=== PATIENT | female | born 1965 | race Caucasian/White ===

== ENCOUNTER → 2017-01-22 | Outpatient (CLI) | payer BC ==
--- NOTE | 2017-01-22 13:50 | DIAGNOSTIC IMAGING REPORT ---
RIGHT HIP UNILATERAL 2 VIEWS CLINICAL HISTORY: 51 years-old Female presenting with falling, bilateral hip pain and lower back pain. TECHNIQUE: Frontal and frog-leg lateral views of the right hip were obtained. COMPARISON: None. FINDINGS: Hip joint congruent. No acute fracture or subluxation. Minimal degenerative change of the right sacroiliac joint suggested. IMPRESSION: No acute osseous injury of the right hip. Electronically signed by: Brendan Sylvester M.D. 01/22/2017 1:49 PM Dictated Date/Time: 01/22/2017 1:48 PM
--- NOTE | 2017-01-22 13:52 | DIAGNOSTIC IMAGING REPORT ---
SACRUM COCCYX MIN 2 VIEWS CLINICAL HISTORY: 51 years-old Female presenting with fall, bilateral hip and lower back pain. TECHNIQUE: Frontal views of the sacrum and coccyx and lateral view of the sacrococcygeal region were obtained. COMPARISON: None. FINDINGS: Arcuate lines intact. Degenerative changes of the sacroiliac joints. No displacement of the coccyx relative to the sacrum. Phleboliths noted. Remainder of visualized pelvis within normal limits. IMPRESSION: No acute osseous injury of the sacrum or coccyx. Electronically signed by: Brendan Sylvester M.D. 01/22/2017 1:51 PM Dictated Date/Time: 01/22/2017 1:49 PM
--- NOTE | 2017-01-22 13:53 | DIAGNOSTIC IMAGING REPORT ---
LEFT HIP UNILATERAL 2 VIEWS, SI JOINTS 3 OR MORE VIEWS HISTORY: 51 years-old Female M25.551 COMPARISON: Sacrum and coccyx radiographs of same day TECHNIQUE: 2 views of the left hip and 3 views of the SI joints. FINDINGS: LEFT HIP: Mild degenerative changes are present within the left hip. No acute fracture or dislocation is identified. Soft tissues are unremarkable. SI JOINTS: Mild degenerative changes involve the bilateral sacroiliac joints without erosive changes. No evidence of sacral fracture. Arcuate lines are intact. Mild facet arthrosis involves the lower lumbar levels. Phleboliths are seen within the pelvis. IMPRESSION: 1. No acute fracture of the left hip or SI joints. 2. Mild degenerative changes of the left hip and SI joints without erosive changes identified. The above report was generated using voice recognition software. It may contain grammatical, syntax or spelling errors. Electronically signed by: Hema Del Cid M.D. 01/22/2017 1:51 PM Dictated Date/Time: 01/22/2017 1:49 PM
--- NOTE | 2017-01-22 13:55 | DIAGNOSTIC IMAGING REPORT ---
L-SPINE MIN 4 VIEWS ROUTINE CLINICAL HISTORY: Lower back pain. COMPARISON: None FINDINGS: A 6 mm left abdominal calcification likely reflects a left renal calculus. There is a 1.1 cm right upper quadrant calcific density. Pelvic calcifications statistically reflect phleboliths. There is 3 mm anterolisthesis of L4 on L5. Vertebral body heights are maintained. There is no fracture or suspicious lesion. There is moderate multilevel facet arthrosis and mild multilevel endplate osteophytosis with preserved disc spaces. IMPRESSION: 1. No lumbar spine fracture. 2. 3 mm of anterolisthesis of L4 and L5. 3. Mild multilevel degenerative disc disease and moderate multilevel facet arthrosis. 4. 6 mm left abdominal calcification which likely reflects a left renal calculus. 5. 1.1 cm right upper quadrant calcification. This is indeterminate but may reflect a gallstone or less likely renal calculus. 6. A few pelvic calcifications which statistically reflect phleboliths. Electronically signed by: José Luis Pederson M.D. 01/22/2017 1:53 PM Dictated Date/Time: 01/22/2017 1:50 PM
== END | disposition home or self-care (01) ==
LOC: C.RADBC 13:01
PROVIDERS: ATTEND Nurse Practitioner
DX: Z87.39 Personal history of other diseases of the musculoskeletal system and connective tissue (principal); M54.5 Low back pain; M43.16 Spondylolisthesis, lumbar region; R93.5 Abnormal findings on diagnostic imaging of other abdominal regions, including retroperitoneum

== ENCOUNTER → 2017-04-22 | Outpatient (CLI) | payer BC ==
--- NOTE | 2017-04-22 10:25 | DIAGNOSTIC IMAGING REPORT ---
R FOOT MIN 3 VIEWS CLINICAL HISTORY: RIGHT FOOT PAIN COMPARISON: None. DISCUSSION: No acute fractures or dislocations are visualized. There are no erosive or destructive changes. There is deformity involving the distal phalanx of the fifth toe. This appears old. IMPRESSION: 1. No acute fractures 2. No evidence of erosive disease 3. Deformity involving the distal phalanx the fifth toe. This appears old. Electronically signed by: Aram Rendon M.D. 04/22/2017 10:24 AM Dictated Date/Time: 04/22/2017 10:23 AM
== END | disposition home or self-care (01) ==
LOC: C.RDSM 11:38
PROVIDERS: ATTEND Internal Medicine
DX: M79.671 Pain in right foot (principal); M20.61 Acquired deformities of toe(s), unspecified, right foot

== ENCOUNTER 2017-05-04 08:48 | Emergency (ER) | payer BC ==
[~2017-05-04] VITALS: Ht 165.1 cm; Wt 92.4 kg
[2017-05-04 08:52] VITALS: TEMP 36.4; Ht 165.1 cm; Wt 92.4 kg
[2017-05-04] MEDS ORDERED: KETOROLAC TROMETHAMINE 10 MG TAB PO STA (09:16)
[2017-05-04] MEDS ORDERED: FLUO10CA48 PO (09:23)
[2017-05-04] MEDS ORDERED: AMPH10TA2 PO (09:23)
--- NOTE | 2017-05-04 09:45 | DIAGNOSTIC IMAGING REPORT ---
RIGHT WRIST 4 VIEWS CLINICAL HISTORY: Right wrist pain. No reported history of trauma. FINDINGS: 4 views of the right wrist are obtained. No prior studies are available for comparison at the time of dictation. The skeletal structures are well mineralized. No fracture is seen. The joint spaces of the wrist are well-maintained. The overlying soft tissues are within normal limits. A ring is present on the third finger. IMPRESSION: Unremarkable radiographic assessment of the right wrist. Electronically signed by: Barry Gagnon M.D. 05/04/2017 9:43 AM Dictated Date/Time: 05/04/2017 9:42 AM
[2017-05-04] MEDS ORDERED: KETO10TA PO (10:17)
[2017-05-04 10:55] VITALS: BP 125/84; PULSE 94; O2SAT 97
--- NOTE | 2017-05-04 15:41 | EMERGENCY ROOM VISIT NOTE ---
ED Visit Note First contact with patient: 09:02 Chief Complaint: Right wrist pain. History of Present Illness: Ms. Garza is a 51-year-old white female who ambulates into the ED complaining of right wrist pain. Historically patient reports she room at [facility] and has self self diagnosed with carpal tunnel syndrome; multiple family members have carpal tunnel and she has been having ongoing system for the last 5-10 years of numbness and tingling in the hand. Patient repeat she had return of numbness and tingling in her hand approximately one week ago. She does report through this week she has been doing construction at her house on a bathroom. During this project she did puncture her index finger with a wooden splinter. She does report she was able to remove the splinter and did have some purulent drainage and questions if it was infected. She then goes on to report that she drove most the night to and back from [facility]. Currently she is complaining of severe wrist pain with hand burning sensations. Her discomfort is through the entire wrist and throughout the hand. She rates her discomfort 10/10. She has not identified any aggravating or alleviating factors related to the pain. She does report taking ibuprofen without relief of her discomfort. She denies any neck pain, elbow pain, forearm pain, hand weakness/numbness, additional trauma to the hand or wrist, skin eruptions, skin color changes, fevers, chills. Review of Systems: As noted above in history of present illness. 5 body systems were reviewed and found to be negative as noted above. Past Medical History: As previously noted and attention deficit disorder. Current Medications: Adderall, Prozac. Allergies to Medications: Penicillin. Social History: Patient is currently employed; she feels safe in her home environment; she denies tobacco use. Physical Examination: Vital Signs: Date Time Temp Pulse Resp B/P (MAP) Pulse Ox O2 Delivery O2 Flow Rate FiO2 05/04/17 10:55 94 20 125/84 97 Room Air 05/04/17 08:52 36.4 74 18 152/103 95 Room Air GENERAL: 51-year-old female in moderate distress due to pain, nontoxic-appearing , afebrile and hemodynamically stable. NEUROLOGICAL: Awake, alert and oriented to person, place and time. Answering questions appropriately and following commands. SKIN: Warm, dry and pink. RIGHT UPPER EXTREMITY: The form a noted at the second distal interphalangeal joint. Joint is in permanent flexion. No tenderness in the elbow or forearm. Moderate tenderness throughout the wrist and hand. I do not appreciate any bony deformity or crepitus. No tenderness in the anatomical snuffbox. Decreased range of motion in flexion, extension and radial molar deviation of the wrist due to pain. Decreased range of motion in the hand due to pain. There is a small puncture wound over the posterior lateral aspect of the index finger. There is no active bleeding; patient reports this was where she had a puncture wound. I do not see any signs of infection including redness, puslike drainage or red streaking. Rule out the hand the skin was warm and pink and capillary refill is brisk. She is able to distinguish light sensations through all dermatomes. More significant testing of the fingers and the wrist was unsuccessful due to her pain. She was able to oppose her thumb with all fingers. ED Course: Patient is assessed as noted above. Patient's medication list was reviewed. Patient was initially offered x-rays and refused because she reported there was no trauma. When I expressed concern about possible involvement of her rheumatoid arthritis she agreed. Right Wrist X-Rays: Were read by myself and the radiologist showing no acute fractures or dislocations. Patient was offered pain medications but refused narcotics and steroids because of previous adverse reactions. Patient did except 10 mg of Toradol by mouth for pain. Patient was offered splints and refused saying she had some at home. Patient was educated about today's findings and instructed on her treatment plan ; she verbalized understanding and agreement with this plan. Clinical Impression: Left wrist pain. Disposition: Patient was discharged home in stable condition; prior to departure she was reassessed and subjectively reported she was feeling better and rated her overall discomfort 8/10. Patient's blood pressure: Elevated. Blood pressure disposition: Situational. Decision-Making: Initially my differential diagnosis I considered carpal tunnel exacerbation, pathological fracture from rheumatoid arthritis, tendinitis, cellulitis, gout, cellulitis, fracture, dislocation and other causes. Plan: Patient was encouraged to continue her current medications and use of splints. Patient was prescribed Toradol 10 mg every 6 hours as needed for pain; she was encouraged to take this with food and stop for stomach pain or indigestion. Patient was encouraged to follow-up with Dr. Euceda of [facility] orthopedics for definitive care and treatment. Patient was encouraged return ED for worsening symptoms, worsening numbness/ tingling or any new/concerning symptoms.
[2017-05-04] MEDS ORDERED: FLUO20CA35 PO (16:26)
[2017-05-04] MEDS ORDERED: OXYC1TAB3 PO (17:01)
== END 2017-05-04 11:02 | disposition home or self-care (01) ==
LOC: C.EDB 08:49
DX: M25.531 Pain in right wrist (principal); R41.840 Attention and concentration deficit; M06.9 Rheumatoid arthritis, unspecified

== ENCOUNTER 2017-05-04 14:57 | Emergency (ER) | payer BC ==
[~2017-05-04] VITALS: Ht 165.1 cm; Wt 103.5 kg
[~2017-05-04 14:57] MED LIST: AMPH10TA2 PO; FLUO10CA48 PO; KETO10TA PO
[2017-05-04 15:16] VITALS: TEMP 36.8; Ht 165.1 cm; Wt 103.5 kg
[2017-05-04] MEDS ORDERED: MoRPHine SULFATE 4 MG/ML 1 ML CARP\\VIAL IV STA (15:36)
[2017-05-04 16:11] LABS: BASO % 0.7 %; BASO ABS # 0.05 K/uL (0-0.2); COMPLETE YES; EOS % 4.8 %; HEMATOCRIT 43.5 % (37-47); IG% 0.3 %; LYMPH % 28.7 %; LYMPH ABS # 1.96 K/uL (1.2-3.4); MEAN CELL VOLUME 87.7 fL (80-100); MEAN CORPUSCULAR HEMOGLOBIN 29.2 pg (25-34); MEAN CORPUSCULAR HGB CONC 33.3 g/dl (32-36); MEAN PLATELET VOLUME 9.7 fL (7.4-10.4); MONO % 8.9 %; NEUT % 56.6 %; PLATELET COUNT 256 K/uL (130-400); RED BLOOD COUNT 4.96 M/uL (4.2-5.4); WHITE BLOOD COUNT 6.82 K/uL (4.8-10.8)
[2017-05-04] MEDS ORDERED: FLUO20CA35 PO (16:26)
[2017-05-04 16:38] LABS: ALB/GLOB RATIO 0.9 (0.9-2); ALKALINE PHOSPHATASE 88 U/L (45-117); ALT/SGPT 56 U/L (12-78); BLOOD UREA NITROGEN 9 mg/dl (7-18); BUN/CREATININE RATIO 10.5 (10-20); C-REACTIVE PROTEIN 0.51 mg/dl (0-0.29); CALCIUM 9.3 mg/dl (8.5-10.1); CARBON DIOXIDE 25 mmol/L (21-32); CHLORIDE 103 mmol/L (98-107); CREATININE 0.88 mg/dl (0.60-1.20); GLUCOSE 93 mg/dl (70-99); SODIUM 138 mmol/L (136-145)
[2017-05-04] MEDS ORDERED: OXYCODONE IR HOME PACK PO STA (16:57)
[2017-05-04] MEDS ORDERED: OXYC1TAB3 PO (17:01)
--- NOTE | 2017-05-04 17:02 | EMERGENCY ROOM VISIT NOTE ---
History First contact with patient: 15:25 Chief Complaint: HAND PAIN/INJURY Stated Complaint: PAIN IN HAND History of Present Illness The patient is a 51 year old female who presents to the Emergency Room via private vehicle accompanied by with complaints of "pain and hand". The patient states that she has had numbness for a long time in her right distal fingertips however for the past week she has been doing a lot of work around the house and notes that her hand now periodically goes numb and has a sharp pain. It is now excruciating, and is rated as a 10/10. She notes she was seen earlier today and had a prescription sent to her pharmacy back home but they were closed therefore she came back here to the emergency department. She states that she at times cannot bend her fingers. She denies any trauma to the region. She also notes a small splinter in the finger but no problems. Review of Systems A complete 10-point Review of Systems was discussed with the patient, with pertinent positives and negatives listed in the History of Present Illness. All remaining Review of Systems questions can be considered negative unless otherwise specified. Past Medical/Surgical History Arthritis Family History No pertinent. Social History Smoking Status: Former Smoker Pt. lives locally Current/Historical Medications Scheduled Amphetamine-Dextroamphetamine 10MG (Adderall 10MG), 10 MG PO DAILY Fluoxetine (Prozac), Unknown Dose PO HS Scheduled PRN Ketorolac Tromethamine (Toradol), 10 MG PO Q6H PRN for Pain Oxycodone Ir (Roxicodone Ir), 1-2 TAB PO Q4H PRN for Pain Physical Exam Vital Signs Date Time Temp Pulse Resp B/P (MAP) Pulse Ox O2 Delivery O2 Flow Rate FiO2 05/04/17 16:24 85 05/04/17 15:16 36.8 85 18 157/88 96 Room Air Physical Exam VITAL SIGNS - Vital signs and nursing notes were reviewed. Stable. GENERAL - 51-year-old female appearing her stated age who is in no acute distress. Communicates well with provider and answers questions appropriately. SKIN - Without rashes. No breaks in the integument, hand unremarkable. HEAD - NC/AT. EYES - PERRL with EOMI bilaterally. Sclera anicteric. EARS - No deformities of external structures noted on gross examination bilaterally. NOSE - Midline and without cyanosis. MOUTH/OROPHARYNX - Without perioral cyanosis. NECK - Neck with FROM. Supple to palpation. No lymphadenopathy noted. No nuchal rigidity. EXTREMITIES - No clubbing or peripheral cyanosis. No pretibial edema present. 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 Great R wrist pulses. +5/5 strength noted in UE/LE bilaterally. NEUROLOGIC - Cranial nerves II through XII grossly intact. Sensory intact to light touch throughout. Medical Decision & Procedures Laboratory Results 05/04/17 15:54 Red Blood Count 4.96, Mean Corpuscular Volume 87.7, Mean Corpuscular Hemoglobin 29.2, Mean Corpuscular Hemoglobin Concent 33.3, Mean Platelet Volume 9.7, Neutrophils (%) (Auto) 56.6, Lymphocytes (%) (Auto) 28.7, Monocytes (%) (Auto) 8.9, Eosinophils (%) (Auto) 4.8, Basophils (%) (Auto) 0.7, Neutrophils # (Auto) 3.85, Lymphocytes # (Auto) 1.96, Monocytes # (Auto) 0.61, Eosinophils # (Auto) 0.33, Basophils # (Auto) 0.05 05/04/17 15:54 Test 05/04/17 15:54 White Blood Count 6.82 K/uL (4.8-10.8) Red Blood Count 4.96 M/uL (4.2-5.4) Hemoglobin 14.5 g/dL (12.0-16.0) Hematocrit 43.5 % (37-47) Mean Corpuscular Volume 87.7 fL (80-100) Mean Corpuscular Hemoglobin 29.2 pg (25-34) Mean Corpuscular Hemoglobin Concent 33.3 g/dl (32-36) Platelet Count 256 K/uL (130-400) Mean Platelet Volume 9.7 fL (7.4-10.4) Neutrophils (%) (Auto) 56.6 % Lymphocytes (%) (Auto) 28.7 % Monocytes (%) (Auto) 8.9 % Eosinophils (%) (Auto) 4.8 % Basophils (%) (Auto) 0.7 % Neutrophils # (Auto) 3.85 K/uL (1.4-6.5) Lymphocytes # (Auto) 1.96 K/uL (1.2-3.4) Monocytes # (Auto) 0.61 K/uL (0.11-0.59) Eosinophils # (Auto) 0.33 K/uL (0-0.5) Basophils # (Auto) 0.05 K/uL (0-0.2) RDW Standard Deviation 45.7 fL (36.4-46.3) RDW Coefficient of Variation 14.3 % (11.5-14.5) Immature Granulocyte % (Auto) 0.3 % Immature Granulocyte # (Auto) 0.02 K/uL (0.00-0.02) Erythrocyte Sedimentation Rate 15 mm/hr (0-21) Anion Gap 9.0 mmol/L (3-11) Est Creatinine Clear Calc Drug Dose 89.3 ml/min Estimated GFR () 87.6 Estimated GFR (Non- 75.5 BUN/Creatinine Ratio 10.5 (10-20) Calcium Level 9.3 mg/dl (8.5-10.1) Total Bilirubin 0.6 mg/dl (0.2-1) Aspartate Amino Transf (AST/SGOT) U/L (15-37) Alanine Aminotransferase (ALT/SGPT) 56 U/L (12-78) Alkaline Phosphatase 88 U/L (45-117) C-Reactive Protein 0.51 mg/dl (0-0.29) Total Protein 7.7 gm/dl (6.4-8.2) Albumin 3.7 gm/dl (3.4-5.0) Globulin 4.0 gm/dl (2.5-4.0) Albumin/Globulin Ratio 0.9 (0.9-2) Medications Administered Medications (Trade) Dose Ordered Sig/Silva Route Start Time Stop Time Status Last Admin Dose Admin Morphine Sulfate (MoRPHine SULFATE INJ) 4 mg NOW STAT IV 05/04/17 15:36 05/04/17 15:38 DC 05/04/17 16:11 4 MG Medical Decision Patient was seen and evaluated as above. She presents to us today with right hand pain. She was seen earlier today and her visit was reviewed. I suspect she is likely either experiencing cervical radiculopathy, or perhaps a component of her underlying arthritis or carpal tunnel. Because of her large amount of pain and did elect to initiate IV access, provided morphine for pain, as well as check baseline labs. These are unremarkable other than a slight elevation of the CRP. I believe this to be insignificant. She appears stable for outpatient management. There is no evidence of infection, which were neurologic compromise upon my evaluation of her. She seems happy with plan of care and is to see orthopedics tomorrow. She'll be given a short prescription of oxycodone. She was educated upon management, educated upon worrisome symptoms which to return, had questions and provided discharge, and was discharged home in good condition. In the treatment of this patient controlled medication was utilized and therefore the [facility], Prescription Drug Monitoring Program website was utilized to look up this patient. No concerns were identified that would prohibit or alter my treatment decision. In the evaluation and treatment of this patient, the following differential diagnoses were considered: Wrist Sprain, Wrist Fracture, Wrist Dislocation, Scapholunate Dissociation, Carpal Fracture, Metacarpal Fracture, Radial Styloid Process Fracture, Ulnar Styloid Process Fracture, or Carpal Tunnel Syndrome. Impression Primary Impression: Hand pain, right Departure Information Dispostion Home / Self-Care Condition GOOD Prescriptions Oxycodone Ir (Roxicodone Ir) 5 Mg Tab 1-2 TAB PO Q4H Y for Pain, #24 TAB For Initial Treatment Prov: Ernesto Costa PA-C 05/04/17 Referrals Tabitha Parker,D.OCarmina (PCP) Juice Euceda, DO Patient Instructions [facility] Additional Instructions You were seen in the emergency Department for right hand pain. I do recommend following up with orthopedics. Please arrange this appointment tomorrow. You were prescribed oxycodone. This is one to 2 tablets every 4-6 hours as needed for severe pain not covered by that [id number] medication. Please do not drive while ingesting this medication. Please return with any new/concerning symptoms.
[2017-05-04 17:32] VITALS: BP 138/75; PULSE 72; O2SAT 100
== END 2017-05-04 17:34 | disposition home or self-care (01) ==
LOC: C.EDB 14:57 → C.EDA 17:34
DX: M79.641 Pain in right hand (principal); Z87.891 Personal history of nicotine dependence; Z79.899 Other long term (current) drug therapy

== ENCOUNTER → 2017-05-12 | Outpatient (CLI) | payer BC ==
[~2017-05-12] MED LIST changes: -FLUO10CA48 PO; +FLUO20CA35 PO; +OXYC1TAB3 PO
--- NOTE | 2017-05-12 16:05 | DIAGNOSTIC IMAGING REPORT ---
BILATERAL UPPER EXTREMITY ARTERIAL DOPPLER ULTRASOUND CLINICAL HISTORY: Right hand pain and numbness. COMPARISON STUDY: No previous studies for comparison. TECHNIQUE: Grayscale and color and duplex Doppler sonography of the arterial systems of both upper arteries was performed. FINDINGS: No vessel occlusion was identified within either upper extremity. No elevated velocities were identified. There was triphasic flow throughout the major arteries of each upper extremity with the exception of biphasic flow within the right radial artery and portions of the right ulnar artery. IMPRESSION: 1. Slightly dampened waveform with biphasic flow within the right radial artery and portions of the right ulnar artery. Otherwise, triphasic flow throughout each upper extremity. 2. No elevated velocities. No vessel occlusion identified by sonography. Electronically signed by: José Luis Pederson M.D. 05/12/2017 4:03 PM Dictated Date/Time: 05/12/2017 4:00 PM
== END | disposition home or self-care (01) ==
LOC: C.ULTR 15:01
PROVIDERS: ATTEND Internal Medicine Rheumatology
DX: M79.641 Pain in right hand (principal); I73.00 Raynaud's syndrome without gangrene

== ENCOUNTER 2017-08-01 17:28 | Emergency (ER) | payer BC, OTHER ==
[~2017-08-01] VITALS: Ht 165.1 cm; Wt 102.9 kg
[~2017-08-01 17:28] MED LIST changes: -KETO10TA PO
[2017-08-01 17:32] VITALS: TEMP 37.2; Ht 165.1 cm; Wt 102.9 kg
[2017-08-01] MEDS ORDERED: ONDANSETRON INJ 2 MG/ML 2 ML VIAL IV STA (17:45)
[2017-08-01] MEDS ORDERED: KETOROLAC TROMETHAMINE 30 MG/ML VIAL IV STA (17:45)
[2017-08-01] MEDS ORDERED: SODIUM CHLORIDE 0.9% 500ML 500 ML IV STA (17:45)
[2017-08-01] MEDS ORDERED: MULT-240 PO (18:00)
[2017-08-01] MEDS ORDERED: CETI10TA84 PO (18:00)
[2017-08-01 18:12] LABS: BASO % 0.5 %; BASO ABS # 0.02 K/uL (0-0.2); EOS % 2.1 %; EOS ABS # 0.09 K/uL (0-0.5); HEMATOCRIT 40.5 % (37-47); HEMOGLOBIN 13.9 g/dL (12.0-16.0); IG# 0.05 K/uL (0.00-0.02); LYMPH % 13.1 %; LYMPH ABS # 0.56 K/uL (1.2-3.4); MEAN CELL VOLUME 86.2 fL (80-100); MEAN CORPUSCULAR HEMOGLOBIN 29.6 pg (25-34); MEAN CORPUSCULAR HGB CONC 34.3 g/dl (32-36); MONO % 6.3 %; MONO ABS # 0.27 K/uL (0.11-0.59); NEUT % 76.8 %; NEUT ABS # 3.29 K/uL (1.4-6.5); PLATELET COUNT 202 K/uL (130-400); RED CELL DISTRIBUTION WIDTH CV 13.7 % (11.5-14.5); RED CELL DISTRIBUTION WIDTH SD 43.2 fL (36.4-46.3); WHITE BLOOD COUNT 4.28 K/uL (4.8-10.8)
--- NOTE | 2017-08-01 18:18 | DIAGNOSTIC IMAGING REPORT ---
LUMBAR SPINE WITHOUT CLINICAL HISTORY: 51 years-old Female presenting with eval for fx, concern for fracture versus kidney stone. TECHNIQUE: Multidetector CT of the lumbar spine was performed without the use of intravenous contrast. IV contrast: None. A dose lowering technique was used consistent with the principles of ALARA (as low as reasonably achievable). COMPARISON: Radiographs from 01/22/2017. CT DOSE (mGy.cm): The estimated cumulative dose is 1698.94. FINDINGS: Systems Engineer topogram: Unremarkable. Normal lumbar lordosis. Vertebral bodies maintain normal height and alignment. Intervertebral disc spaces maintained. Mild degenerative changes evidenced by facet arthropathy from L3-4 through L5-S1. No significant osseous neural foraminal narrowing. No acute fracture or subluxation. No scoliosis. Nonobstructing calculi noted in the left kidney. IMPRESSION: 1. No acute osseous injury lumbar spine. 2. Nonobstructing left renal calculi. Electronically signed by: Brendan Sylvester M.D. 08/01/2017 6:16 PM Dictated Date/Time: 08/01/2017 6:14 PM
[2017-08-01 18:24] LABS: ALBUMIN 3.5 gm/dl (3.4-5.0); ALT/SGPT 37 U/L (12-78); BLOOD UREA NITROGEN 12 mg/dl (7-18); CALCIUM 9.2 mg/dl (8.5-10.1); CARBON DIOXIDE 27 mmol/L (21-32); CREATININE 1.02 mg/dl (0.60-1.20); GLUCOSE 94 mg/dl (70-99); LIPASE 156 U/L (73-393); POTASSIUM 3.5 mmol/L (3.5-5.1); SODIUM 138 mmol/L (136-145)
--- NOTE | 2017-08-01 18:24 | DIAGNOSTIC IMAGING REPORT ---
ABD/PELVIS WITHOUT FOR STONE HISTORY: 51 years-old Female eval for stone acute bilateral flank pain with concern for kidney stone COMPARISON: Lumbar spine CT of same day TECHNIQUE: Multiple axial CT images of the abdomen and pelvis were obtained without the use of IV contrast. A dose lowering technique was used consistent with the principals of BRADLEY. FINDINGS: 3 mm solid nodule of the left lower lobe is noted on image 14 of series 3. There is mild subsegmental bibasilar atelectasis. There is no pneumatosis or pneumoperitoneum identified. Imaged inferior cardiac chambers are unremarkable. Hepatic steatosis. There is no intrahepatic biliary ductal dilation identified. Circumscribed low attenuating 7 mm lesion of the left hepatic lobe is too small to characterize however suggests benign etiology such as a hepatic cyst. Cholelithiasis without CT evidence of acute cholecystitis. Spleen, pancreas and adrenal glands are within normal limits. 9 mm nonobstructing calculus of the inferior pole right kidney. Punctate nonobstructing calculus of the superior pole left kidney. No right-sided nephrolithiasis, obstructive uropathy or ureteral calculi identified. Urinary bladder is not imaged. The study is limited secondary to the inferior portion of the pelvis not imaged. Uterus is unremarkable. No adnexal mass lesions. Aorta is normal in course and caliber. No bulky adenopathy. No bowel obstruction or focal bowel wall thickening. Normal appendix. Tiny fat filled periumbilical hernia. Soft tissues are unremarkable. Bones appear intact. Multilevel moderate facet arthropathy of the lower lumbar spine. IMPRESSION: 1. Limited study with the inferior pelvis including the urinary bladder not imaged. 2. Bilateral nonobstructing nephrolithiasis without ureteral calculi or obstructive uropathy identified. 3. Cholelithiasis without CT evidence of acute cholecystitis. 4. Hepatic steatosis. 5. Normal appendix. The above report was generated using voice recognition software. It may contain grammatical, syntax or spelling errors. Electronically signed by: Hema Del Cid M.D. 08/01/2017 6:23 PM Dictated Date/Time: 08/01/2017 6:13 PM
[2017-08-01 18:27] LABS: ALKALINE PHOSPHATASE 93 U/L (45-117); AST/SGOT 43 U/L (15-37); TOTAL PROTEIN 7.5 gm/dl (6.4-8.2)
[2017-08-01] MEDS ORDERED: CIPROFLOXACIN 500 MG TAB PO STA (18:44)
[2017-08-01] MEDS ORDERED: CIPR-255 PO (18:47)
[2017-08-01 18:58] VITALS: BP 112/68; PULSE 104; O2SAT 96
[2017-08-01] MEDS ORDERED: ONDANSETRON HOME PACK 4MG OD TAB PO ONE (19:00)
--- NOTE | 2017-08-01 23:23 | EMERGENCY ROOM VISIT NOTE ---
History Report prepared by Gustavo: Cristian Mercado Under the Supervision of: Dr. Aly Walton M.D. First contact with patient: 17:35 Chief Complaint: KIDNEY STONE Stated Complaint: BACK PAIN, KIDNEY STONE AND INFECTION History of Present Illness The patient is a 51 year old female who presents to the Emergency Room with complaints of persistent back pain for three weeks. She states that she has been having this pain for three weeks and was seen by her PCP today, who recommended she come to the ED for a CT scan. She notes the pain is achy in nature. She notes pain to the front of her thighs, though cannot tell if the pain from her back is radiating to her legs. She reports a history of bulging disk in her lower back. She was diagnosed with a UTI May 2017. She did not have urinary symptoms at that time and so did not get treated. Currently she has urgency to urinate and reports frequent urination. She reports nausea, though denies any vomiting. She reports a low grade fever. She reports constipation and denies any diarrhea. She denies any chance of . She denies any current leg swelling or pain. She has a history of rheumatoid arthritis. Source of History: patient Onset: three weeks Position: back Symptom Intensity: moderate Quality: ache Timing: other (persistent) Associated Symptoms: + fevers, + nausea, No vomiting, No diarrhea, No urinary symptoms Note: She reports constipation. She denies any leg pain or swelling. Review of Systems See HPI for pertinent positives & negatives. A total of 10 systems reviewed and were otherwise negative. Past Medical & Surgical Medical Problems: (1) Rheumatoid arthritis Family History Cancer FHx: gallbladder disease Kidney disease Kidney stones Lung disease Social History Smoking Status: Former Smoker Smokeless Tobacco Use: No Alcohol Use: none Drug Use: none Marital Status: Housing Status: lives with significant other Occupation Status: employed Current/Historical Medications Scheduled Amphetamine-Dextroamphetamine 10MG (Adderall 10MG), 10 MG PO DAILY Cetirizine (Zyrtec), 10 MG PO DAILY Ciprofloxacin Hcl (Cipro), 500 MG PO BID Fluoxetine (Prozac), 20 MG PO HS Multiple Vitamins W/ Minerals (Womens One Daily), 1 TAB PO DAILY Allergies Coded Allergies: Penicillins (Verified Allergy, Unknown, 05/04/17) Physical Exam Vital Signs Date Time Temp Pulse Resp B/P (MAP) Pulse Ox O2 Delivery O2 Flow Rate FiO2 08/01/17 18:58 104 16 112/68 96 08/01/17 17:32 37.2 68 20 117/75 97 Room Air Physical Exam Constitutional: Vital signs reviewed. Eyes: Pupils are equal round reactive to light. Conjunctiva are noninjected. ENT: Pharynx is clear without erythema or exudate. Mucous membranes are moist. Neck supple without meningeal signs. Respiratory: Clear to auscultation bilaterally. Breath sounds are equal bilaterally. Cardiovascular: Regular rate and rhythm. No rubs or gallops. GI: Soft, nondistended and nontender. Bowel sounds are present. Musculoskeletal: No peripheral edema. No lower extremity tenderness. No midline tenderness to thoracic or lumbosacral spine. No CVA tenderness. Integumentary: No cyanosis. Neurological: The patient is awake and alert. No focal deficits. Motor and sensation are intact in the lower extremities. Psychiatric: Normal affect. Medical Decision & Procedures ER Provider Diagnostic Interpretation: Radiology results as stated below per my review and the radiologist's interpretation: ABD/PELVIS WITHOUT FOR STONE HISTORY: 51 years-old Female eval for stone acute bilateral flank pain with concern for kidney stone COMPARISON: Lumbar spine CT of same day TECHNIQUE: Multiple axial CT images of the abdomen and pelvis were obtained without the use of IV contrast. A dose lowering technique was used consistent with the principals of ALARA. FINDINGS: 3 mm solid nodule of the left lower lobe is noted on image 14 of series 3. There is mild subsegmental bibasilar atelectasis. There is no pneumatosis or pneumoperitoneum identified. Imaged inferior cardiac chambers are unremarkable. Hepatic steatosis. There is no intrahepatic biliary ductal dilation identified. Circumscribed low attenuating 7 mm lesion of the left hepatic lobe is too small to characterize however suggests benign etiology such as a hepatic cyst. Cholelithiasis without CT evidence of acute cholecystitis. Spleen, pancreas and adrenal glands are within normal limits. 9 mm nonobstructing calculus of the inferior pole right kidney. Punctate nonobstructing calculus of the superior pole left kidney. No right-sided nephrolithiasis, obstructive uropathy or ureteral calculi identified. Urinary bladder is not imaged. The study is limited secondary to the inferior portion of the pelvis not imaged. Uterus is unremarkable. No adnexal mass lesions. Aorta is normal in course and caliber. No bulky adenopathy. No bowel obstruction or focal bowel wall thickening. Normal appendix. Tiny fat filled periumbilical hernia. Soft tissues are unremarkable. Bones appear intact. Multilevel moderate facet arthropathy of the lower lumbar spine. IMPRESSION: 1. Limited study with the inferior pelvis including the urinary bladder not imaged. 2. Bilateral nonobstructing nephrolithiasis without ureteral calculi or obstructive uropathy identified. 3. Cholelithiasis without CT evidence of acute cholecystitis. 4. Hepatic steatosis. 5. Normal appendix. The above report was generated using voice recognition software. It may contain grammatical, syntax or spelling errors. Electronically signed by: Hema Del Cid M.D. 08/01/2017 6:23 PM Dictated Date/Time: 08/01/2017 6:13 PM LUMBAR SPINE WITHOUT CLINICAL HISTORY: 51 years-old Female presenting with eval for fx, concern for fracture versus kidney stone. TECHNIQUE: Multidetector CT of the lumbar spine was performed without the use of intravenous contrast. IV contrast: None. A dose lowering technique was used consistent with the principles of ALARA (as low as reasonably achievable). COMPARISON: Radiographs from 01/22/2017. CT DOSE (mGy.cm): The estimated cumulative dose is 1698.94. FINDINGS: Crab Picker topogram: Unremarkable. Normal lumbar lordosis. Vertebral bodies maintain normal height and alignment. Intervertebral disc spaces maintained. Mild degenerative changes evidenced by facet arthropathy from L3-4 through L5-S1. No significant osseous neural foraminal narrowing. No acute fracture or subluxation. No scoliosis. Nonobstructing calculi noted in the left kidney. IMPRESSION: 1. No acute osseous injury lumbar spine. 2. Nonobstructing left renal calculi. Electronically signed by: Brendan Sylvester M.D. 08/01/2017 6:16 PM Dictated Date/Time: 08/01/2017 6:14 PM Laboratory Results 08/01/17 17:56 Red Blood Count 4.70, Mean Corpuscular Volume 86.2, Mean Corpuscular Hemoglobin 29.6, Mean Corpuscular Hemoglobin Concent 34.3, Mean Platelet Volume 9.0, Neutrophils (%) (Auto) 76.8, Lymphocytes (%) (Auto) 13.1, Monocytes (%) (Auto) 6.3, Eosinophils (%) (Auto) 2.1, Basophils (%) (Auto) 0.5, Neutrophils # (Auto) 3.29, Lymphocytes # (Auto) 0.56, Monocytes # (Auto) 0.27, Eosinophils # (Auto) 0.09, Basophils # (Auto) 0.02 08/01/17 17:56 Test 08/01/17 17:55 08/01/17 17:56 Urine Color DK YELLOW Urine Appearance TURBID (CLEAR) Urine pH 5.0 (4.5-7.5) Urine Specific [place] 1.034 (1.000-1.030) Urine Protein 1+ (NEG) Urine Glucose (UA) NEG (NEG) Urine Ketones TRACE (NEG) Urine Occult Blood 1+ (NEG) Urine Nitrite NEG (NEG) Urine Bilirubin NEG (NEG) Urine Urobilinogen NEG (NEG) Urine Leukocyte Esterase MODERATE (NEG) Urine WBC (Auto) >30 /hpf (0-5) Urine RBC (Auto) 5-10 /hpf (0-4) Urine Hyaline Casts (Auto) 1-5 /lpf (0-5) Urine Epithelial Cells (Auto) >30 /lpf (0-5) Urine Bacteria (Auto) 4+ (NEG) Urine Pathogenic Casts /lpf (0) Urine Yeast (Auto) (NONE PRSENT) Urine Test NEG (NEG) White Blood Count 4.28 K/uL (4.8-10.8) Red Blood Count 4.70 M/uL (4.2-5.4) Hemoglobin 13.9 g/dL (12.0-16.0) Hematocrit 40.5 % (37-47) Mean Corpuscular Volume 86.2 fL (80-100) Mean Corpuscular Hemoglobin 29.6 pg (25-34) Mean Corpuscular Hemoglobin Concent 34.3 g/dl (32-36) Platelet Count 202 K/uL (130-400) Mean Platelet Volume 9.0 fL (7.4-10.4) Neutrophils (%) (Auto) 76.8 % Lymphocytes (%) (Auto) 13.1 % Monocytes (%) (Auto) 6.3 % Eosinophils (%) (Auto) 2.1 % Basophils (%) (Auto) 0.5 % Neutrophils # (Auto) 3.29 K/uL (1.4-6.5) Lymphocytes # (Auto) 0.56 K/uL (1.2-3.4) Monocytes # (Auto) 0.27 K/uL (0.11-0.59) Eosinophils # (Auto) 0.09 K/uL (0-0.5) Basophils # (Auto) 0.02 K/uL (0-0.2) RDW Standard Deviation 43.2 fL (36.4-46.3) RDW Coefficient of Variation 13.7 % (11.5-14.5) Immature Granulocyte % (Auto) 1.2 % Immature Granulocyte # (Auto) 0.05 K/uL (0.00-0.02) Anion Gap 8.0 mmol/L (3-11) Est Creatinine Clear Calc Drug Dose 76.8 ml/min Estimated GFR () 73.2 Estimated GFR (Non- 63.2 BUN/Creatinine Ratio 11.9 (10-20) Calcium Level 9.2 mg/dl (8.5-10.1) Total Bilirubin 0.3 mg/dl (0.2-1) Direct Bilirubin < 0.1 mg/dl (0-0.2) Aspartate Amino Transf (AST/SGOT) 43 U/L (15-37) Alanine Aminotransferase (ALT/SGPT) 37 U/L (12-78) Alkaline Phosphatase 93 U/L (45-117) Total Protein 7.5 gm/dl (6.4-8.2) Albumin 3.5 gm/dl (3.4-5.0) Lipase 156 U/L (73-393) Laboratory results as reviewed by me. Medications Administered Medications (Trade) Dose Ordered Sig/Silva Route Start Time Stop Time Status Last Admin Dose Admin Sodium Chloride 500 ml @ 999 mls/hr Q31M STAT IV 08/01/17 17:45 08/01/17 18:15 DC 08/01/17 17:58 999 MLS/HR Ciprofloxacin (Cipro Tab) 500 mg NOW STAT PO 08/01/17 18:44 08/01/17 18:45 DC 08/01/17 18:48 500 MG Ondansetron HCl (ZOFRAN ODT 4MG Home Pack) 1 homepack UD ONCE PO 08/01/17 19:00 08/01/17 19:01 DC 08/01/17 18:55 1 HOMEPACK ED Course 1740: The patient was evaluated in room B12B. A complete history and physical exam was performed. 1744: Ordered Toradol 10 mg IV, Sodium Chloride 500 ml @ 999 mls/hr IV, and Zofran 4mg IV 1841: I reassessed the patient at this time. She states that her pain is completely gone. I informed her that they did not scan her lower pelvis and her bladder could not be seen. I offered to send her back and she declined. I discussed the results and treatment plan with the patient. I answered all pertaining questions that she had. She expressed understanding and verbalized agreement. The patient will be discharged home. 1843: Ordered Cipro 500 mg PO 1899: Ordered Zofran 1 homepack PO Medical Decision This is a 51-year-old female who presents with low back pain with urinary symptoms. Differential diagnosis includes ureterolithiasis, hydronephrosis, lumbar disc disease, UTI, pyelonephritis. I did perform a limited focused review of portions of the patient's old chart on the electronic medical record. The patient has had no prior visits to this hospital. I did evaluate the patient as noted above. The patient is presenting with a 3 week history of lower back pain. She did have a UTI diagnosed in May but was not treated because she had no symptoms at that time. Currently she does have urinary symptoms. She also has a history of lumbar disc disease and states that the pain does radiate down her anterior thighs bilaterally. She has no focal neurologic deficits to her legs to suggest spinal cord involvement. She has no swelling to her legs to suggest DVT. IV access was established. I did order Toradol 10 mg IV for the patient. I did order and personally review the patient's urinalysis as described above. A urine culture was sent. I did order and review the patient's blood work as noted in the electronic medical record. Her white blood cell count is slightly low. I did order a CT of the abdomen and pelvis and lumbar spine. I did review the images myself as well as the radiology report as described above. She does not have a ureteral stone or signs of obstruction, but for some reason the lower pelvis was not imaged. She does have intrarenal stones but no ureteral stones as imaged. The bladder was not visualized. She has no fractures on lumbar spine but she does have intervertebral disc disease. I did reevaluate the patient. I did discuss the test results with her in detail including the incidental findings on CT scan as well as her blood work. I did offer to reimage her to get the lower pelvis but given she has no signs of obstruction it was not completely necessary at this point and so she deferred at this time. She states she has no pain currently. I did recommend we treat her with antibiotics for a likely kidney infection. She was agreeable with this and she was advised to follow-up closely with her doctor. She was given Cipro here and discharged with a 10 day prescription for Cipro. She was given return instructions as outlined below. Medication Reconcilliation Current Medication List: was personally reviewed by me Blood Pressure Screening Patient's blood pressure: Elevated blood pressure Blood pressure disposition: Elevated BP felt to be situational Impression Primary Impression: Pyelonephritis Scribe Attestation The scribe's documentation has been prepared under my direct and personally reviewed by me in its entirety. I confirm that the note above accurately reflects all work, treatment, procedures, and medical decision making performed by me. Departure Information Dispostion Home / Self-Care Prescriptions Ciprofloxacin Hcl (CIPRO) 500 Mg Tab 500 MG PO BID, #20 TAB Prov: Aly Walton M.D. 08/01/17 Referrals Tabitha Parker D.OCarmina (PCP) Forms HOME CARE DOCUMENTATION FORM, IMPORTANT VISIT INFORMATION Patient Instructions ED Nodule Solitary Pulmonary, [facility], Pyelonephritis Dc Additional Instructions You have been examined and treated today on an emergency basis only. This is not a substitute for, or an effort to provide, complete comprehensive medical care. It is impossible to recognize and treat all injuries or illnesses in a single emergency department visit. It is therefore important that you follow up closely with your physician. Call as soon as possible for an appointment. Return for worsening symptoms or if you develop fever, vomiting, abdominal pain , loss of control of your bowel or bladder, numbness or weakness to your legs, numbness to your private area, or any other concerning symptoms. Have your doctor repeat your CBC which showed a low white count today. Also discussed the incidental findings on her CAT scan with her.
== END 2017-08-01 18:55 | disposition home or self-care (01) ==
LOC: C.EDB 17:29
DX: N12 Tubulo-interstitial nephritis, not specified as acute or chronic (principal); M51.16 Intervertebral disc disorders with radiculopathy, lumbar region; M06.9 Rheumatoid arthritis, unspecified; Z87.891 Personal history of nicotine dependence; Z88.0 Allergy status to penicillin; Z80.9 Family history of malignant neoplasm, unspecified; Z83.79 Family history of other diseases of the digestive system; Z84.1 Family history of disorders of kidney and ureter

== ENCOUNTER 2019-06-23 16:13 | Observation (INO) ==
[2019-06-23] MEDS ORDERED: SODIUM CHLORIDE 0.9% 500 ML IV SCH (18:00)
[2019-06-23 18:34] LABS: Basophils # (auto) 0.01 K/uL (0-0.2); Basophils % (auto) 0.2 %; Eosinophils # (auto) 0.24 K/uL (0-0.5); Eosinophils % (auto) 5.1 %; Hematocrit (blood only) 37.8 % (37-47); Hemoglobin 12.7 g/dL (12.0-16.0); Immature Granulocytes # (auto) 0.02 K/uL (0.00-0.02); Immature Granulocytes % (auto) 0.4 %; Lymphocytes # (auto) 1.04 K/uL (1.2-3.4); Mean Corpuscular Hgb Conc 33.6 g/dL (32-36); Mean Corpuscular Volume 86.3 fL (80-100); Mean Platelet Volume 9.1 fL (7.4-10.4); Monocytes # (auto) 0.66 K/uL (0.11-0.59); Neutrophils # (auto) 2.76 K/uL (1.4-6.5); Neutrophils % (auto) 58.3 %; Platelet Count 182 K/uL (130-400); RDW Coefficient of Variation 13.8 % (11.5-14.5); RDW Standard Deviation 43.6 fL (36.4-46.3); Red Blood Count 4.38 M/uL (4.2-5.4); White Blood Count 4.73 K/uL (4.8-10.8)
[2019-06-23 18:44] LABS: Appearance Urine Cloudy (Clear); Bacteria Urine Automated Negative (Negative); Bilirubin Urine Negative (Negative); Blood Urine Negative (Negative); Color Urine Dark Yellow; Epithelial Cell Urine Auto >30 /lpf (0-5); Glucose Urine UA Negative (Negative); Ketones Urine Trace (Negative); Leukocyte Esterase Urine Trace (Negative); Nitrite Urine Negative (Negative); Protein Urine Negative (Negative); Specific Gravity Urine 1.026 (1.000-1.030); Urobilinogen Urine Negative (Negative)
[2019-06-23 18:55] LABS: Cast Urine Automated 0 /lpf (0-5)
[2019-06-23 18:57] LABS: Albumin Globulin Ratio 0.7 (0.9-2); Albumin Level 2.8 gm/dl (3.4-5.0); BUN Creatinine Ratio 14.6 (10-20); Bilirubin,Total 0.4 mg/dl (0.2-1); Est GFR (African American) 111.9; Est GFR (Non-African American) 96.6; Globulin 4.3 gm/dl (2.5-4.0); Magnesium 2.4 mg/dl (1.8-2.4); Potassium 3.8 mmol/L (3.5-5.1); Total Protein 7.1 gm/dl (6.4-8.2)
[2019-06-23] MEDS ORDERED: IOVERSOL 100ml IV PRN (19:48)
--- NOTE | 2019-06-23 19:51 | Ultrasound Report ---
US gallbladder CLINICAL HISTORY: 53 years-old Female presenting with continued upper abd pain, elevated lfts, recent us. TECHNIQUE: Real-time grayscale and limited color Doppler ultrasound imaging of the abdomen limited to the right upper quadrant was performed. COMPARISON: 06/21/2019. FINDINGS: Pancreas: Visualized portions of the pancreatic head and body normal. Liver: Mildly hyperechogenic parenchyma, although the right hemidiaphragm remains visible, likely ind icating mild steatosis. The liver measures 18.1 cm in maximal sagittal dimension. No sonographic evid ence of hepatic mass. Main portal vein patent with normal directional flow. Biliary: No intrahepatic biliary ductal dilatation. Common bile duct measures up to 9 mm in diameter. Gallbladder: Gallstones without evidence of gallbladder distention, wall thickening, or inflammatory change. Trace pericholecystic fluid. Sonographic Hemphill's sign negative. Right kidney: Normal in appearance without evidence of hydronephrosis. Ascites: None. Other: None. IMPRESSION: 1. Cholelithiasis. Extrahepatic biliary ductal dilatation, possibly choledocholithiasis. No convinci ng evidence of cholecystitis. 2. Mild hepatic steatosis suspected. Correlate with liver function tests to exclude steatohepatitis as a cause for abdominal pain. ACT 112: Negative or not required by law. Electronically signed by: Brendan Sylvester M.D. 06/23/2019 7:50 PM
[2019-06-23 20:16] LABS: INR 1.1 (0.9-1.1); Prothrombin Time 10.9 Seconds (9.0-12.0)
--- NOTE | 2019-06-23 20:24 | CT Scan Report ---
CT abd pelvis IV con only CLINICAL HISTORY: 53 years-old Female presenting with upper abdominal pain. TECHNIQUE: Multidetector CT of the abdomen and pelvis was performed after the administration of intra venous contrast. IV contrast: 90 mL of Optiray 320. One or more dose lowering techniques were used co nsistent with the principles of ALARA (as low as reasonably achievable), including automatic exposure control, mA or kV adjustment to individual patient size, and/or use of iterative reconstruction. COMPARISON: 02/03/2018. CT DOSE (mGy.cm): The estimated cumulative dose is 1312.57 mGy.cm. FINDINGS: Geriatric Nursing Assistant topogram: Unremarkable. Lung bases: Normal heart size. No pericardial or pleural effusion. Minimal dependent changes likely a telectasis. Liver: The liver is enlarged measuring 20.9 cm in maximal sagittal dimension. Density suggestive of h epatic steatosis. Well-defined hypodense lesion centrally in the liver likely hepatic cyst. Patent he patic vasculature. Biliary: No intrahepatic or extrahepatic biliary ductal dilatation. Gallbladder contains gallstones. Pancreas: Normal. Spleen: Normal. Adrenal glands: Normal. Kidneys and ureters: Normal. No hydronephrosis. Bladder: Normal. Pelvic organs: Uterus and ovaries normal. Bowel: Normal appendix. No bowel obstruction. Peritoneal cavity: No free fluid or intraperitoneal gas. Lymph nodes: No enlarged lymph nodes in the abdomen or pelvis. Vasculature: Aorta and IVC patent and normal in caliber. Abdominal wall: Normal. Musculoskeletal: Mild degenerative changes with facet arthropathy in the lower lumbar spine. IMPRESSION: 1. Hepatic steatosis and hepatomegaly. Correlate with liver function tests to evaluate for steatohep atitis as a cause for abdominal pain. 2. Cholelithiasis. No cholecystitis. 3. No other evidence of acute intra-abdominal pathology. ACT 112: Negative or not required by law. Electronically signed by: Brendan Sylvester M.D. 06/23/2019 8:23 PM
[2019-06-23 21:09] LABS: Hepatitis B Surface Antigen Neg (Neg)
[2019-06-23 21:37] LABS: Hepatitis C IgG 13Yrs+Old_Rflx Neg (Neg)
--- NOTE | 2019-06-23 23:01 | History & Physical Report ---
Date of Service June 23, 2019 Assessment & Plan (1) Upper abdominal pain: Patient's main complaint is that of upper abdominal pain with nausea. Noted to have elevated LFTs. Will be kept n.p.o. except medications during assessment. Present on Admission?: Yes (2) Elevated LFTs: Likely at least in part a function of fatty liver. Work-up to continue to assess for possible cholecystitis, choledocholithiasis or dysfunctional gallbladder. Ordering HIDA scan NM for further evaluation. Consult gastroenterology Dr. Jose Alejandro Daniel. Present on Admission?: Yes (3) UTI (urinary tract infection): Has been on Cipro 500 mg p.o. twice daily. Present on Admission?: Yes (4) Cholelithiasis: Small gallstone noted in the gallbladder. Possible choledocholithiasis noted on CT, was not appreciated on MRI Present on Admission?: Yes (5) Rheumatoid arthritis: Not reported to be on immunosuppressive agents. No recent flare activity. Present on Admission?: Yes (6) Fatty liver: Noted on imaging of CT, ultrasound and MRI. Present on Admission?: Yes (7) Depression: On fluoxetine 20 mg at bedtime Present on Admission?: Yes History of Present Illness Chief Complaint: The patient is sent to the emergency department by her PCP due to abnormal LFTs and abdominal discomfort, fever and reported mild confusion. Primary Care Provider: Tabitha Parker DO The patient is a 53-year-old female with a past medical history including abnormal LFTs, UTI, rheumatoid arthritis, sepsis, pyelonephritis, obstructive uropathy and depression. She was referred to the ED due to worsening abdominal discomfort symptoms, fever and reported episode of confusion. Allergies Allergy/AdvReac Type Severity Reaction Status Date / Time No Known Allergies Allergy Verified 06/23/19 18:04 Home Medications Home Medications Medication Instructions Recorded Confirmed Type dextroamphetamine-amphetamine 10 mg PO UD PRN #0 tab 05/04/17 06/23/19 History [Adderall] fluoxetine 20 mg PO HS #0 cap 05/04/17 06/23/19 History cetirizine 10 mg PO HS #0 tab 08/01/17 06/23/19 History multivitamin with minerals 1 tab PO QAM #0 08/01/17 06/23/19 History [Multiple Vitamin-Minerals] acetaminophen [Tylenol Extra 500 mg PO Q6H PRN 06/19/19 06/23/19 History Strength] ciprofloxacin HCl [Cipro] 500 mg PO BID #10 tab 06/19/19 06/23/19 Rx ibuprofen 200 mg PO Q6H PRN 06/21/19 06/23/19 History nystatin-triamcinolone 1 appln TOP BID PRN 06/21/19 06/23/19 History ondansetron 4 mg PO Q6 PRN #14 tab 06/21/19 06/23/19 Rx Past Med/Surg History Medical History Attention deficit disorder (ADD) Degenerative disc disease 3 in lower back Depression (Chronic) "MENOPAUSE INDUCED" GERD (gastroesophageal reflux disease) Kidney stones (Resolved) Osteoarthritis Rheumatoid arthritis UTI (urinary tract infection) (Acute) Surgical History History of colonoscopy History of cystoscopy WITH STENT INSERTION then removal History of tooth extraction Family History Other No significant family history Social History Preferred Language: Lao Communication Ability: Effective Visual Impairment: No Limitations Container Washer Required: No Beliefs That Will Affect Care: None Current Living Situation: Spouse Current Living Situation Comment: DAUGHTER Other Information That Helps Us Care for You: No Feels Safe at Home: Yes Safety Concerns: Feels Safe At This Time Smoking Status: Never smoker Cigarettes Per Day: QUIT OVER 30 YEARS AGO ; Do You Dip or Chew Tobacco: No ; Second Hand Exposure: No ; Tobacco Cessation Education Requested by Patient: No Hx Alcohol Use: No Hx Substance Use: No Review of Systems Review of Systems: The patient denies chest pain, palpitations, shortness of breath, dyspnea on exertion, cough, lower extremity swelling, sore throat, chills, sweats, vomiting, diarrhea, blood in urine or stool, dysuria, urinary frequency or urgency, lightheadedness, dizziness, headache, memory loss, loss of consciousness, rash, abnormal bruising or bleeding, imbalance, focal or generalized weakness, numbness or tingling in arms or legs, generalized arthralgias or myalgias, back or neck pain, or night sweats. The review of systems is otherwise negative other than for that already noted above, and at least 10 systems have been reviewed. Physical Exam Physical Exam: The patient is awake, alert and oriented 3, well developed and well nourished, normocephalic and atraumatic, lying in bed and in no acute distress. HEENT--PERRL, EOMI, mucous membranes and oropharynx dry. Neck--supple. No JVD. No bruits. Thyroid normal, trachea midline, no adenopathy. Heart--normal S1 and S2. No murmurs, rubs or gallops. Lungs--clear bilaterally, no respiratory distress, no accessory muscle use. Abdomen--normal bowel sounds and soft. Nontender. Nondistended. Mildly tympanitic. Extremities--no cyanosis or clubbing. No edema. Dermatologic--normal skin turgor, normal color, no abnormal lymph nodes, no rash. Neurologic--cranial nerves II through XII grossly intact. Rheumatologic--normal range of motion. Psychiatric--normal affect. Results & Data Vital Signs (Past 12 Hours) Vital Signs Temp Pulse Pulse Resp BP BP Pulse Ox 06/23/19 22:00 22 06/23/19 21:00 99 H 20 94 06/23/19 20:31 90 21 115/67 98 06/23/19 20:24 93 H 90 23 114/73 114/73 97 06/23/19 20:23 94 H 17 06/23/19 19:13 94 H 19 106/75 97 06/23/19 19:01 98 H 24 97 06/23/19 19:00 95 H 21 106/75 97 06/23/19 18:37 96 H 20 105/80 96 06/23/19 18:36 98 H 22 95 06/23/19 18:34 93 H 25 H 105/80 95 06/23/19 16:35 98.4 F 102 H 20 125/85 95 Laboratory Results Laboratory Results WBC 4.73 K/uL (4.8-10.8) L 06/23/19 18:09 RBC 4.38 M/uL (4.2-5.4) 06/23/19 18:09 Hgb 12.7 g/dL (12.0-16.0) 06/23/19 18:09 Hct 37.8 % (37-47) 06/23/19 18:09 MCV 86.3 fL (80-100) 06/23/19 18:09 MCH 29.0 pg (25-34) 06/23/19 18:09 MCHC 33.6 g/dL (32-36) 06/23/19 18:09 RDW Std Deviation 43.6 fL (36.4-46.3) 06/23/19 18:09 RDW Coeff of Minda 13.8 % (11.5-14.5) 06/23/19 18:09 Plt Count 182 K/uL (130-400) 06/23/19 18:09 MPV 9.1 fL (7.4-10.4) 06/23/19 18:09 Immature Gran % (Auto) 0.4 % 06/23/19 18:09 Neut % (Auto) 58.3 % 06/23/19 18:09 Lymph % (Auto) 22.0 % 06/23/19 18:09 [place] % (Auto) 14.0 % 06/23/19 18:09 Eos % (Auto) 5.1 % 06/23/19 18:09 Baso % (Auto) 0.2 % 06/23/19 18:09 Immature Gran # (Auto) 0.02 K/uL (0.00-0.02) 06/23/19 18:09 Neut # (Auto) 2.76 K/uL (1.4-6.5) 06/23/19 18:09 Lymph # (Auto) 1.04 K/uL (1.2-3.4) L 06/23/19 18:09 [place] # (Auto) 0.66 K/uL (0.11-0.59) H 06/23/19 18:09 Eos # (Auto) 0.24 K/uL (0-0.5) 06/23/19 18:09 Baso # (Auto) 0.01 K/uL (0-0.2) 06/23/19 18:09 PT 10.9 Seconds (9.0-12.0) 06/23/19 19:54 INR 1.1 (0.9-1.1) 06/23/19 19:54 Sodium 137 mmol/L (136-145) 06/23/19 18:09 Potassium 3.8 mmol/L (3.5-5.1) 06/23/19 18:09 Chloride 105 mmol/L (98-107) 06/23/19 18:09 Carbon Dioxide 27 mmol/L (21-32) 06/23/19 18:09 Anion Gap 5.0 (3-11) 06/23/19 18:09 BUN 10 mg/dl (7-18) 06/23/19 18:09 Creatinine 0.71 mg/dl (0.6-1.2) 06/23/19 18:09 Est Cr Clr Drug Dosing 105.0 ml/min 06/23/19 18:09 Est GFR ( Amer) 111.9 06/23/19 18:09 Est GFR (Non-Af Amer) 96.6 06/23/19 18:09 BUN/Creatinine Ratio 14.6 (10-20) 06/23/19 18:09 Glucose 100 mg/dl (70-99) H 06/23/19 18:09 Calcium 9.0 mg/dl (8.5-10.1) 06/23/19 18:09 Magnesium 2.4 mg/dl (1.8-2.4) 06/24/19 00:25 Total Bilirubin 0.4 mg/dl (0.2-1) 06/23/19 18:09 AST 72 U/L (15-37) H 06/23/19 18:09 ALT 139 U/L (12-78) H 06/23/19 18:09 Alkaline Phosphatase 183 U/L (45-117) H 06/23/19 18:09 Ammonia 13.0 umol/L (11-32) 06/23/19 18:09 Total Protein 7.1 gm/dl (6.4-8.2) 06/23/19 18:09 Albumin 2.8 gm/dl (3.4-5.0) L 06/23/19 18:09 Globulin 4.3 gm/dl (2.5-4.0) H 06/23/19 18:09 Albumin/Globulin Ratio 0.7 (0.9-2) L 06/23/19 18:09 Amylase 29 U/L (25-115) 06/23/19 18:09 Lipase 107 U/L (73-393) 06/23/19 18:09 Specimen Hemolysis 06/23/19 18:09 Urine Color Dark Yellow 06/23/19 18:25 Urine Appearance Cloudy (Clear) A 06/23/19 18:25 Urine pH 6.0 (4.5-7.5) 06/23/19 18:25 Ur Specific [place] 1.026 (1.000-1.030) 06/23/19 18:25 Urine Protein Negative (Negative) 06/23/19 18:25 Urine Glucose (UA) Negative (Negative) 06/23/19 18:25 Urine Ketones Trace (Negative) H 06/23/19 18:25 Urine Blood Negative (Negative) 06/23/19 18:25 Urine Nitrite Negative (Negative) 06/23/19 18:25 Urine Bilirubin Negative (Negative) 06/23/19 18:25 Urine Urobilinogen Negative (Negative) 06/23/19 18:25 Ur Leukocyte Esterase Trace (Negative) H 06/23/19 18:25 Urine WBC (Auto) 1-5 /hpf (0-5) 06/23/19 18:25 Urine RBC (Auto) 10-30 /hpf (0-4) H 06/23/19 18:25 U Hyaline Cast (Auto) 0 /lpf (0-5) 06/23/19 18:25 U Epithel Cells (Auto) >30 /lpf (0-5) H 06/23/19 18:25 Urine Bacteria (Auto) Negative (Negative) 06/23/19 18:25 Hep Bs Antigen Neg (Neg) 06/23/19 19:54 Hepatitis C Antibody Neg (Neg) 06/23/19 19:54 Monoscreen Negative (Negative) 06/23/19 19:54 Diagnostic Findings [place], [place] [phone] CT Scan Report Patient: MC CONKLIN BAdmit Date: 06/23/19 MR#: [id number]: Dixie ALVARADO Acct ID:[id number]: Date: 1965[facility] Zip: [place] [address] Age: 53Location: ED Sex: F Room/Bed: Att Phy:Diagnosis: SEVERE ABDOMINAL PAIN Claudia Phy: Tabitha Parker D.O.Service Date: 06/23/19 Fam Phy:Interpreting Phy: Brendan Sylvester MD Admit Phy: Ordering Phy: Rishabh Carey MD cc: ~ CT abd pelvis IV con only CLINICAL HISTORY: 53 years-old Female presenting with upper abdominal pain. TECHNIQUE: Multidetector CT of the abdomen and pelvis was performed after the administration of intravenous contrast. IV contrast: 90 mL of Optiray 320. One or more dose lowering techniques were used consistent with the principles of ALARA (as low as reasonably achievable), including automatic exposure control, mA or kV adjustment to individual patient size, and/or use of iterative reconstruction. COMPARISON: 02/03/2018. CT DOSE (mGy.cm): The estimated cumulative dose is 1312.57 mGy.cm. FINDINGS: Billet Examiner topogram: Unremarkable. Lung bases: Normal heart size. No pericardial or pleural effusion. Minimal dependent changes likely atelectasis. Liver: The liver is enlarged measuring 20.9 cm in maximal sagittal dimension. Density suggestive of hepatic steatosis. Well-defined hypodense lesion centrally in the liver likely hepatic cyst. Patent hepatic vasculature. Biliary: No intrahepatic or extrahepatic biliary ductal dilatation. Gallbladder contains gallstones. Pancreas: Normal. Spleen: Normal. Adrenal glands: Normal. Kidneys and ureters: Normal. No hydronephrosis. Bladder: Normal. Pelvic organs: Uterus and ovaries normal. Bowel: Normal appendix. No bowel obstruction. Peritoneal cavity: No free fluid or intraperitoneal gas. Lymph nodes: No enlarged lymph nodes in the abdomen or pelvis. Vasculature: Aorta and IVC patent and normal in caliber. Abdominal wall: Normal. Musculoskeletal: Mild degenerative changes with facet arthropathy in the lower lumbar spine. IMPRESSION: 1. Hepatic steatosis and hepatomegaly. Correlate with liver function tests to evaluate for steatohepatitis as a cause for abdominal pain. 2. Cholelithiasis. No cholecystitis. 3. No other evidence of acute intra-abdominal pathology. ACT 112: Negative or not required by law. Electronically signed by: Brendan Sylvester M.D. 06/23/2019 8:23 PM Dictated: 06/23/192017 Transcribed: 06/23/192017 [facility], [place] [phone] Ultrasound Report Patient: MC CONKLIN BAdgraciela Date: 06/23/19 MR#: [id number]: 112 BHUPINDER ALVARADO Acct ID:[id number]: Date: 1965City Zip: [place] [address] Age: 53Location: ED Sex: F Room/Bed: Att Phy:Diagnosis: SEVERE ABDOMINAL PAIN Claudia Phy: Tabitha Parker D.O.Service Date: 06/23/19 Fam Phy:Interpreting Phy: Brendan Sylvester MD Admit Phy: Ordering Phy: Rishabh Carey MD cc: ~ US gallbladder CLINICAL HISTORY: 53 years-old Female presenting with continued upper abd pain, elevated lfts, recent us. TECHNIQUE: Real-time grayscale and limited color Doppler ultrasound imaging of the abdomen limited to the right upper quadrant was performed. COMPARISON: 06/21/2019. FINDINGS: Pancreas: Visualized portions of the pancreatic head and body normal. Liver: Mildly hyperechogenic parenchyma, although the right hemidiaphragm remains visible, likely indicating mild steatosis. The liver measures 18.1 cm in maximal sagittal dimension. No sonographic evidence of hepatic mass. Main portal vein patent with normal directional flow. Biliary: No intrahepatic biliary ductal dilatation. Common bile duct measures up to 9 mm in diameter. Gallbladder: Gallstones without evidence of gallbladder distention, wall thickening, or inflammatory change. Trace pericholecystic fluid. Sonographic Hemphill's sign negative. Right kidney: Normal in appearance without evidence of hydronephrosis. Ascites: None. Other: None. IMPRESSION: 1. Cholelithiasis. Extrahepatic biliary ductal dilatation, possibly choledocholithiasis. No convincing evidence of cholecystitis. 2. Mild hepatic steatosis suspected. Correlate with liver function tests to exclude steatohepatitis as a cause for abdominal pain. ACT 112: Negative or not required by law. Electronically signed by: Brendan Sylvester M.D. 06/23/2019 7:50 PM Dictated: 06/23/191946 Transcribed: 06/23/191946 [facility] Patient: MC CONKLIN (Female) : 63 Status: IP Date: 06/24/19 02:04 Room #: N378-2 History: STARTED LAST FRIDAY (06-16-2019) VERY SICK AND UNABLE TO EAT OR DRINK. NO APPETITE. ELEVATED TEMPERATURE. THOUGHT IT WAS FLU. NAUSEA, VOMITING, HEART BURN. NO DIARRHEA. STRONG PAIN IN LIVER AREA. STILL HAS GB. NPO 21:00 ON 06-23-2019 Slices: [id number] Priors: CT ABD/PEL, US GALLBLADER Tech: Eriberto Tse @ [phone] Exams: MRCP Accession Numbers: [id number] Preliminary Findings Only See Final Report For Complete Findings MRCP : Small gallstone measuring 5 mm in the gallbladder without wall thickening or surrounding edema to suggest cholecystitis. No biliary dilatation. No choledocholithiasis. Hepatic steatosis. The pancreas, spleen, and bilateral kidneys are unremarkable. Radiologist: Hay Anand MD Study ready at 02:12 and initial results transmitted at 02:50 Results also transmitted to [address] [place] [address] ([id number]) @ [phone] (Fax) *This report constitutes a preliminary interpretation only. Non-acute findings felt to be unrelated to the clinical presentation may not be discussed in this report. The study will be interpreted and a final report will be generated by the local Radiologist the following shift. To reach the hospital radiology department call [phone]. If a discrepancy is found between the preliminary and final interpretations of this study, please notify us via our Client Portal at [email or web address] under QA Exams.You can also fax this report with a description of the discrepancy, or include the final report, to our daytime fax number [phone].If faxing, please indicate the severity of discrepancy using one of the following categories: [ ] 1 - Agree/Informational [ ] 2 - Unlikely to Affect Management [ ] 3 - Possible Eventual Change of Management [ ] 4 - Probable Immediate Change of Management For all other patient related information, please fax us at [phone]. [id number] Code Status & VTE Plan Code Status Full code VTE Prophylaxis Plan VTE Prophylaxis will be ordered: Yes PG Care Time/CCT Total # of Minutes Spent Total Time Spent with Patient: Total time spent is greater than 50% in coordination of care (as documented) at patient's floor/unit and/or counseling patient: (1) UTI (urinary tract infection) Hematuria presence: without hematuria Urinary tract infection type: site unspecified Qualified Code(s): N39.0 - Urinary tract infection, site not specified (2) Cholelithiasis Biliary obstruction: without biliary obstruction Cholecystitis presence: without cholecystitis Cholelithiasis location: gallbladder Qualified Code(s): K80.20 - Calculus of gallbladder without cholecystitis without obstruction
[2019-06-24] MEDS ORDERED: ONDANSETRON INJ 2 MG/ML 2 ML VIAL IV PRN (00:10)
--- NOTE | 2019-06-24 00:30 | Emergency Department Note ---
Entered by Keri Chaves acting as a scribe for ED Provider Note CHIEF COMPLAINT: GI assessment HISTORY OF PRESENT ILLNESS: The patient is a 53 year old female who presents to the Emergency Room for a GI assessment after being referred by her PCP for blood work and a CT scan. The patient has a history of sepsis from a urinary source and elevated LFTs. She currently complains of abdominal discomfort, confusion, and fever. Her daughter states that yesterday she was very agitated, which is unusual for her. The patient rates her pain at a 10 at times but then gets better. Currently she does not have any pain unless she presses on her abdomen in the epigastric area. Her pain is exacerbated with eating and drinking. The patient complains of nausea and heartburn when she eats. The patient had blood work done at [facility] yesterday. She denies recent travel. The patient notes that she is on Cipro, and has taken 2 over the last 24 hours. Pt denies LOC, headache, chills, di aphoresis, visual changes, neck pain, chest pain, breathing difficulties, back pain, melena, hematochezia, urinary symptoms, numbness, weakness, lymphadenopathy, rash, or other complaints. REVIEW OF SYSTEMS: See HPI for pertinent positives and negatives. A total of ten systems were reviewed and were otherwise negative. PMHx/PSHx: Sepsis Elevated LFTs Kidney stones SOCIAL HISTORY: Patient lives at home. PHYSICAL EXAM: GENERAL: Awake, alert, well-appearing, in no distress HENT: Normocephalic, atraumatic. Oropharynx unremarkable. EYES: PERRL. Normal conjunctiva. Sclera non-icteric. NECK: Inspection normal. Non-tender. Supple. No nuchal rigidity. FROM. No masses. RESPIRATORY: Clear to auscultation. No wheezes. No rales. Normal respiratory effort. CARDIAC: Normal rate. Normal rhythm. No murmurs. No rubs. Extremities warm and well perfused. Pulses equal. No JVD. GI: Epigastric tenderness. Soft, non-distended. No rebound or guarding. No masses. RECTAL: Deferred. MUSCULOSKELETAL: Atraumatic. Chest examination reveals no tenderness. The back is symmetrical on inspection without obvious abnormality. There is no CVA tenderness to palpation. No joint edema. LOWER EXTREMITIES: Calves are equal size bilaterally and non-tender. No edema. No discoloration. NEURO: Normal sensorium. No sensory or motor deficits noted. SKIN: No rash or jaundice noted. EMERGENCY DEPARTMENT COURSE: 1743: Past medical records reviewed. The patient was evaluated in room A10, and a complete history and physical examination were performed. 1915: I received a fax from [facility] noting discussion with GI. Requested additional labs regarding the elevated LFTs. Additional labs were ordered 2135: I spoke to the patient regarding further treatment. She was agreeable to staying for further evaluation. I talked to Dr. Montalvo, [facility] hospitalist, who agreed to take over care of the patient. The patient verbally expressed understanding and agreement of the treatment plan. The patient will be evaluated for further treatment. MEDICAL DECISION MAKING: Prior records/ancillary studies reviewed. Triage Nursing notes reviewed and agree them. Additional history obtained from family. The patient's history was concerning for abdominal pain and elevated LFTs. She denied any Tylenol, alcohol, or mushroom ingestion. Differential diagnosis: Etiologies such as biliary pathology, hepatitis, liver failure, appendicitis, diverticulitis, PUD, UTI, pancreatitis, obstruction, mesenteric ischemia, aortic pathology, infections, inflammatory bowel disease, renal colic, as well as others were entertained. Physical examination findings: As above. ER treatment provided: Patient was hydrated. Declined analgesia. Diagnostics interpreted by me: The labs revealed an unremarkable CBC and chemistry panel. The patient's LFTs are elevated. Hepatitis panel is pending but partially back and so far negative. Additional labs requested by the primary office and GI were performed. They are pending. Imaging studies: Ultrasound imaging was performed and revealed cholelithiasis and question choledocholithiasis. CT scan of the abdomen and pelvis did not reveal any acute pathology except for hepatic steatosis. Patient has upper abdominal pain and notes inability to eat. She was doing relatively well and declined analgesia here. She was imaged and there was concerns about choledocholithiasis on repeat imaging. This was not seen on the first ultrasound. She will need further liver imaging and GI consultation. Consultation: A consultation was placed with the [facility] hospitalist. The case was discussed and diagnostics were reviewed. The patient was evaluated in the ER for further treatment. IMPRESSION: Upper abdominal pain Elevated LFTs Cholelithiasis Choledocholithiasis PLAN: Admit The scribe's documentation has been prepared under my direction and personally reviewed by me in its entirety. I confirm that the note above accurately reflects all work, treatment, procedures, and medical decision making performed by me. Impression & Plan Choledocholithiasis, Cholelithiasis, Upper abdominal pain, Elevated LFTs Past Med/Surg History Medical History Attention deficit disorder (ADD) Degenerative disc disease 3 in lower back Depression (Chronic) "MENOPAUSE INDUCED" GERD (gastroesophageal reflux disease) Kidney stones (Resolved) Osteoarthritis Rheumatoid arthritis UTI (urinary tract infection) (Acute) Surgical History History of colonoscopy History of cystoscopy WITH STENT INSERTION then removal History of tooth extraction Family History Other No significant family history Social History Preferred Language: Sudanese Communication Ability: Effective Visual Impairment: No Limitations Bell Captain Required: No Beliefs That Will Affect Care: None Current Living Situation: Spouse Current Living Situation Comment: DAUGHTER Feels Safe at Home: Yes Smoking Status: Former smoker Cigarettes Per Day: QUIT OVER 30 YEARS AGO ; Second Hand Exposure: No ; Hx Alcohol Use: No Hx Substance Use: No Results & Data Vital Signs Vital Signs - 24 hr 06/23/19 16:35 06/23/19 18:34 06/23/19 18:36 Temperature 36.9 C Temperature Source Oral Pulse Rate 102 H 93 H 98 H Pulse Rate [Left] Pulse Rate from SpO2 Sensor 92 H 99 H Pulse Rhythm [Left] Pulse Strength [Left] Respiratory Rate 20 25 H 22 Respiratory Effort / Characteristics Non-Labored Respiratory Depth Normal Respiratory Pattern Blood Pressure 125/85 105/80 Blood Pressure [Left Arm] Blood Pressure Mean 98 87 Blood Pressure Mean [Left Arm] Blood Pressure Position [Left Arm] Pulse Oximetry 95 95 95 Oxygen Delivery Method Room Air Sepsis Recent Fever Within 48 Hours No Sepsis Action Taken by Nursing No Action Required 06/23/19 18:37 06/23/19 19:00 06/23/19 19:01 Temperature Temperature Source Pulse Rate 95 H 98 H Pulse Rate [Left] 96 H Pulse Rate from SpO2 Sensor 94 H 97 H Pulse Rhythm [Left] Regular Pulse Strength [Left] Normal Respiratory Rate 20 21 24 Respiratory Effort / Characteristics Non-Labored Respiratory Depth Normal Respiratory Pattern Regular Blood Pressure 106/75 Blood Pressure [Left Arm] 105/80 Blood Pressure Mean 92 Blood Pressure Mean [Left Arm] 88 Blood Pressure Position [Left Arm] Pulse Oximetry 96 97 97 Oxygen Delivery Method Room Air Sepsis Recent Fever Within 48 Hours Sepsis Action Taken by Nursing 06/23/19 19:13 06/23/19 20:23 06/23/19 20:24 Temperature Temperature Source Pulse Rate 94 H 93 H Pulse Rate [Left] 94 H 90 Pulse Rate from SpO2 Sensor 93 H Pulse Rhythm [Left] Regular Pulse Strength [Left] Respiratory Rate 19 17 23 Respiratory Effort / Characteristics Non-Labored Respiratory Depth Normal Respiratory Pattern Regular Blood Pressure 114/73 Blood Pressure [Left Arm] 106/75 114/73 Blood Pressure Mean 77 Blood Pressure Mean [Left Arm] 85 86 Blood Pressure Position [Left Arm] Lying Pulse Oximetry 97 97 Oxygen Delivery Method Room Air Room Air Sepsis Recent Fever Within 48 Hours Sepsis Action Taken by Nursing 06/23/19 20:31 06/23/19 21:00 06/23/19 22:00 Temperature Temperature Source Pulse Rate 90 99 H Pulse Rate [Left] Pulse Rate from SpO2 Sensor 92 H 99 H Pulse Rhythm [Left] Pulse Strength [Left] Respiratory Rate 21 20 22 Respiratory Effort / Characteristics Respiratory Depth Respiratory Pattern Blood Pressure 115/67 Blood Pressure [Left Arm] Blood Pressure Mean 82 Blood Pressure Mean [Left Arm] Blood Pressure Position [Left Arm] Pulse Oximetry 98 94 Oxygen Delivery Method Sepsis Recent Fever Within 48 Hours Sepsis Action Taken by [facility] Medications Current Medication List: was personally reviewed by me Laboratory Data Attestation: I reviewed the patient's lab results. Result diagrams: 06/23/19 18:09 06/23/19 18:09 Lab Results 06/23/19 06/23/19 06/23/19 Range/Units 18:09 18:09 18:09 WBC 4.73 L (4.8-10.8) K/uL RBC 4.38 (4.2-5.4) M/uL Hgb 12.7 (12.0-16.0) g/dL Hct 37.8 (37-47) % MCV 86.3 (80-100) fL MCH 29.0 (25-34) pg MCHC 33.6 (32-36) g/dL RDW Std Deviation 43.6 (36.4-46.3) fL RDW Coeff of Minda 13.8 (11.5-14.5) % Plt Count 182 (130-400) K/uL MPV 9.1 (7.4-10.4) fL Immature Gran % (Auto) 0.4 % Neut % (Auto) 58.3 % Lymph % (Auto) 22.0 % [place] % (Auto) 14.0 % Eos % (Auto) 5.1 % Baso % (Auto) 0.2 % Immature Gran # (Auto) 0.02 (0.00-0.02) K/uL Neut # (Auto) 2.76 (1.4-6.5) K/uL Lymph # (Auto) 1.04 L (1.2-3.4) K/uL [place] # (Auto) 0.66 H (0.11-0.59) K/uL Eos # (Auto) 0.24 (0-0.5) K/uL Baso # (Auto) 0.01 (0-0.2) K/uL PT (9.0-12.0) Seconds INR (0.9-1.1) Sodium (136-145) mmol/L Potassium (3.5-5.1) mmol/L Chloride (98-107) mmol/L Carbon Dioxide (21-32) mmol/L Anion Gap (3-11) BUN (7-18) mg/dl Creatinine (0.6-1.2) mg/dl Est Cr Clr Drug Dosing ml/min Est GFR ( Amer) Est GFR (Non-Af Amer) BUN/Creatinine Ratio (10-20) Glucose (70-99) mg/dl Calcium (8.5-10.1) mg/dl Magnesium (1.8-2.4) mg/dl Total Bilirubin (0.2-1) mg/dl AST (15-37) U/L ALT (12-78) U/L Alkaline Phosphatase (45-117) U/L Ammonia 13.0 (11-32) umol/L Total Protein (6.4-8.2) gm/dl Albumin (3.4-5.0) gm/dl Globulin (2.5-4.0) gm/dl Albumin/Globulin Ratio (0.9-2) Amylase 29 (25-115) U/L Lipase (73-393) U/L Specimen Hemolysis Urine Color Urine Appearance (Clear) Urine pH (4.5-7.5) Ur Specific [place] (1.000-1.030) Urine Protein (Negative) Urine Glucose (UA) (Negative) Urine Ketones (Negative) Urine Blood (Negative) Urine Nitrite (Negative) Urine Bilirubin (Negative) Urine Urobilinogen (Negative) Ur Leukocyte Esterase (Negative) Urine WBC (Auto) (0-5) /hpf Urine RBC (Auto) (0-4) /hpf U Hyaline Cast (Auto) (0-5) /lpf U Epithel Cells (Auto) (0-5) /lpf Urine Bacteria (Auto) (Negative) Hep Bs Antigen (Neg) Hepatitis C Antibody (Neg) Monoscreen (Negative) 06/23/19 06/23/19 06/23/19 Range/Units 18:09 18:25 19:54 WBC (4.8-10.8) K/uL RBC (4.2-5.4) M/uL Hgb (12.0-16.0) g/dL Hct (37-47) % MCV (80-100) fL MCH (25-34) pg MCHC (32-36) g/dL RDW Std Deviation (36.4-46.3) fL RDW Coeff of Minda (11.5-14.5) % Plt Count (130-400) K/uL MPV (7.4-10.4) fL Immature Gran % (Auto) % Neut % (Auto) % Lymph % (Auto) % [place] % (Auto) % Eos % (Auto) % Baso % (Auto) % Immature Gran # (Auto) (0.00-0.02) K/uL Neut # (Auto) (1.4-6.5) K/uL Lymph # (Auto) (1.2-3.4) K/uL [place] # (Auto) (0.11-0.59) K/uL Eos # (Auto) (0-0.5) K/uL Baso # (Auto) (0-0.2) K/uL PT 10.9 (9.0-12.0) Seconds INR 1.1 (0.9-1.1) Sodium 137 (136-145) mmol/L Potassium 3.8 (3.5-5.1) mmol/L Chloride 105 (98-107) mmol/L Carbon Dioxide 27 (21-32) mmol/L Anion Gap 5.0 (3-11) BUN 10 (7-18) mg/dl Creatinine 0.71 (0.6-1.2) mg/dl Est Cr Clr Drug Dosing 105.0 ml/min Est GFR ( Amer) 111.9 Est GFR (Non-Af Amer) 96.6 BUN/Creatinine Ratio 14.6 (10-20) Glucose 100 H (70-99) mg/dl Calcium 9.0 (8.5-10.1) mg/dl Magnesium 2.4 (1.8-2.4) mg/dl Total Bilirubin 0.4 (0.2-1) mg/dl AST 72 H (15-37) U/L ALT 139 H (12-78) U/L Alkaline Phosphatase 183 H (45-117) U/L Ammonia (11-32) umol/L Total Protein 7.1 (6.4-8.2) gm/dl Albumin 2.8 L (3.4-5.0) gm/dl Globulin 4.3 H (2.5-4.0) gm/dl Albumin/Globulin Ratio 0.7 L (0.9-2) Amylase (25-115) U/L Lipase 107 (73-393) U/L Specimen Hemolysis Urine Color Dark Yellow Urine Appearance Cloudy A (Clear) Urine pH 6.0 (4.5-7.5) Ur Specific [place] 1.026 (1.000-1.030) Urine Protein Negative (Negative) Urine Glucose (UA) Negative (Negative) Urine Ketones Trace H (Negative) Urine Blood Negative (Negative) Urine Nitrite Negative (Negative) Urine Bilirubin Negative (Negative) Urine Urobilinogen Negative (Negative) Ur Leukocyte Esterase Trace H (Negative) Urine WBC (Auto) 1-5 (0-5) /hpf Urine RBC (Auto) 10-30 H (0-4) /hpf U Hyaline Cast (Auto) 0 (0-5) /lpf U Epithel Cells (Auto) >30 H (0-5) /lpf Urine Bacteria (Auto) Negative (Negative) Hep Bs Antigen (Neg) Hepatitis C Antibody (Neg) Monoscreen (Negative) 06/23/19 06/23/19 Range/Units 19:54 19:54 WBC (4.8-10.8) K/uL RBC (4.2-5.4) M/uL Hgb (12.0-16.0) g/dL Hct (37-47) % MCV (80-100) fL MCH (25-34) pg MCHC (32-36) g/dL RDW Std Deviation (36.4-46.3) fL RDW Coeff of Minda (11.5-14.5) % Plt Count (130-400) K/uL MPV (7.4-10.4) fL Immature Gran % (Auto) % Neut % (Auto) % Lymph % (Auto) % [place] % (Auto) % Eos % (Auto) % Baso % (Auto) % Immature Gran # (Auto) (0.00-0.02) K/uL Neut # (Auto) (1.4-6.5) K/uL Lymph # (Auto) (1.2-3.4) K/uL [place] # (Auto) (0.11-0.59) K/uL Eos # (Auto) (0-0.5) K/uL Baso # (Auto) (0-0.2) K/uL PT (9.0-12.0) Seconds INR (0.9-1.1) Sodium (136-145) mmol/L Potassium (3.5-5.1) mmol/L Chloride (98-107) mmol/L Carbon Dioxide (21-32) mmol/L Anion Gap (3-11) BUN (7-18) mg/dl Creatinine (0.6-1.2) mg/dl Est Cr Clr Drug Dosing ml/min Est GFR ( Amer) Est GFR (Non-Af Amer) BUN/Creatinine Ratio (10-20) Glucose (70-99) mg/dl Calcium (8.5-10.1) mg/dl Magnesium (1.8-2.4) mg/dl Total Bilirubin (0.2-1) mg/dl AST (15-37) U/L ALT (12-78) U/L Alkaline Phosphatase (45-117) U/L Ammonia (11-32) umol/L Total Protein (6.4-8.2) gm/dl Albumin (3.4-5.0) gm/dl Globulin (2.5-4.0) gm/dl Albumin/Globulin Ratio (0.9-2) Amylase (25-115) U/L Lipase (73-393) U/L Specimen Hemolysis Urine Color Urine Appearance (Clear) Urine pH (4.5-7.5) Ur Specific [place] (1.000-1.030) Urine Protein (Negative) Urine Glucose (UA) (Negative) Urine Ketones (Negative) Urine Blood (Negative) Urine Nitrite (Negative) Urine Bilirubin (Negative) Urine Urobilinogen (Negative) Ur Leukocyte Esterase (Negative) Urine WBC (Auto) (0-5) /hpf Urine RBC (Auto) (0-4) /hpf U Hyaline Cast (Auto) (0-5) /lpf U Epithel Cells (Auto) (0-5) /lpf Urine Bacteria (Auto) (Negative) Hep Bs Antigen Neg (Neg) Hepatitis C Antibody Neg (Neg) Monoscreen Negative (Negative) Administered Medications Ioversol (Optiray 320 100ml) 90 ml IV ONCE PRN PRN Reason: Interaction Checking Stop: 06/27/19 19:47 Last Admin: 06/23/19 19:48 Dose: 90 ml Documented by: [id number] Discontinued Medications Sodium Chloride (Nss) 500 mls @ 999 mls/hr IV .[id number] JUDIE Stop: 06/23/19 18:30 Last Infusion: 06/23/19 19:14 Dose: 0 mls/hr Documented by: [id number] Admin: 06/23/19 18:42 Dose: 999 mls/hr Documented by: [id number] Imaging Data Radiologist's Impression: Radiology results as stated below per my review and the radiologist's interpretation: US gallbladder CLINICAL HISTORY: 53 years-old Female presenting with continued upper abd pain, elevated lfts, recent us. TECHNIQUE: Real-time grayscale and limited color Doppler ultrasound imaging of the abdomen limited to the right upper quadrant was performed. COMPARISON: 06/21/2019. FINDINGS: Pancreas: Visualized portions of the pancreatic head and body normal. Liver: Mildly hyperechogenic parenchyma, although the right hemidiaphragm remains visible, likely indicating mild steatosis. The liver measures 18.1 cm in maximal sagittal dimension. No sonographic evidence of hepatic mass. Main portal vein patent with normal directional flow. Biliary: No intrahepatic biliary ductal dilatation. Common bile duct measures up to 9 mm in diameter. Gallbladder: Gallstones without evidence of gallbladder distention, wall thickening, or inflammatory change. Trace pericholecystic fluid. Sonographic Hemphill's sign negative. Right kidney: Normal in appearance without evidence of hydronephrosis. Ascites: None. Other: None. IMPRESSION: 1. Cholelithiasis. Extrahepatic biliary ductal dilatation, possibly choledocholithiasis. No convincing evidence of cholecystitis. 2. Mild hepatic steatosis suspected. Correlate with liver function tests to exclude steatohepatitis as a cause for abdominal pain. ACT 112: Negative or not required by law. Electronically signed by: Brendan Sylvester M.D. 06/23/2019 7:[address] abd pelvis IV con only CLINICAL HISTORY: 53 years-old Female presenting with upper abdominal pain. TECHNIQUE: Multidetector CT of the abdomen and pelvis was performed after the administration of intravenous contrast. IV contrast: 90 mL of Optiray 320. One or more dose lowering techniques were used consistent with the principles of ALARA (as low as reasonably achievable), including automatic exposure control, mA or kV adjustment to individual patient size, and/or use of iterative reconstruction. COMPARISON: 02/03/2018. CT DOSE (mGy.cm): The estimated cumulative dose is 1312.57 mGy.cm. FINDINGS: Room Service Bellhop topogram: Unremarkable. Lung bases: Normal heart size. No pericardial or pleural effusion. Minimal dependent changes likely atelectasis. Liver: The liver is enlarged measuring 20.9 cm in maximal sagittal dimension. Density suggestive of hepatic steatosis. Well-defined hypodense lesion centrally in the liver likely hepatic cyst. Patent hepatic vasculature. Biliary: No intrahepatic or extrahepatic biliary ductal dilatation. Gallbladder contains gallstones. Pancreas: Normal. Spleen: Normal. Adrenal glands: Normal. Kidneys and ureters: Normal. No hydronephrosis. Bladder: Normal. Pelvic organs: Uterus and ovaries normal. Bowel: Normal appendix. No bowel obstruction. Peritoneal cavity: No free fluid or intraperitoneal gas. Lymph nodes: No enlarged lymph nodes in the abdomen or pelvis. Vasculature: Aorta and IVC patent and normal in caliber. Abdominal wall: Normal. Musculoskeletal: Mild degenerative changes with facet arthropathy in the lower l umbar spine. IMPRESSION: 1. Hepatic steatosis and hepatomegaly. Correlate with liver function tests to evaluate for steatohepatitis as a cause for abdominal pain. 2. Cholelithiasis. No cholecystitis. 3. No other evidence of acute intra-abdominal pathology. ACT 112: Negative or not required by law. Blood Pressure Blood Pressure Findings: Normal blood pressure Blood Pressure Disposition: did not require urgent referral Discharge Plan Visit Data *Final* Discharge Date/Time: 06/23/19 23:29 Chief Complaint: GI Assessment Stated Complaint: SEVERE ABDOMINAL PAIN ED Provider: Rishabh Carey Discharge Problem: Choledocholithiasis, Cholelithiasis, Upper abdominal pain, Elevated LFTs Patient Disposition: Admitted As Inpatient Discharge Instructions Interventions: ED Discharge Assessment Last Done: 06/23/19 23:29 Discharge Problem: Cholelithiasis Qualifiers: Cholelithiasis location: gallbladder Cholecystitis presence: without cholecystitis Biliary obstruction: without biliary obstruction Qualified Code(s): K80.20 - Calculus of gallbladder without cholecystitis without obstruction The scribe's documentation has been prepared under my direction and personally reviewed by me in its entirety. I confirm that the note above accurately reflects all work, treatment, procedures, and medical decision making performed by me.
[2019-06-24] MEDS: NSS + 20MEQ KCL 20 MEQ/1,000 ML BAG IV SCH ×2 (01:58→11:43)
[2019-06-24] MEDS ORDERED: CIPROFLOXACIN 500 MG TAB PO SCH (03:15)
[2019-06-24] MEDS ORDERED: FLUOXETINE HCL 20 MG CAP PO SCH (03:15)
--- NOTE | 2019-06-24 06:35 | Magnetic Resonance Report ---
Study: MRCP. HISTORY: Trauma liver pain. COMPARISON: None. CT comparison 06/23/2019 FINDINGS: The liver is uniform. Small gallstone within the gallbladder lumen. No significant gallblad miguel angel wall thickening or pericholecystic edematous change. Kidneys negative for hydronephrosis. Spleen is unremarkable. The MRCP component of the study is normal. No evidence for choledocholithiasis. Nonobstructive bowel pattern IMPRESSION: 1. Small gallstone. 2. Otherwise negative MRI of the abdomen. 3. Negative MRCP. Electronically signed by: Donald Yates M.D. 06/24/2019 6:34 AM
[2019-06-24 07:05] LABS: Basophils # (auto) 0.02 K/uL (0-0.2); Basophils % (auto) 0.4 %; Eosinophils # (auto) 0.19 K/uL (0-0.5); Eosinophils % (auto) 3.9 %; Hematocrit (blood only) 36.5 % (37-47); Hemoglobin 12.3 g/dL (12.0-16.0); Immature Granulocytes # (auto) 0.03 K/uL (0.00-0.02); Immature Granulocytes % (auto) 0.6 %; Lymphocytes % (auto) 24.8 %; Mean Corpuscular Hemoglobin 29.2 pg (25-34); Mean Corpuscular Hgb Conc 33.7 g/dL (32-36); Mean Corpuscular Volume 86.7 fL (80-100); Mean Platelet Volume 8.8 fL (7.4-10.4); Monocytes # (auto) 0.66 K/uL (0.11-0.59); Monocytes % (auto) 13.6 %; Neutrophils # (auto) 2.74 K/uL (1.4-6.5); Neutrophils % (auto) 56.7 %; Platelet Count 178 K/uL (130-400); RDW Coefficient of Variation 13.9 % (11.5-14.5); Red Blood Count 4.21 M/uL (4.2-5.4); White Blood Count 4.84 K/uL (4.8-10.8)
[2019-06-24 07:40] LABS: Albumin Level 2.8 gm/dl (3.4-5.0); BUN Creatinine Ratio 17.8 (10-20); Calcium 8.7 mg/dl (8.5-10.1); Creatinine Clr Calc Pharmacy 123.9 ml/min; Est GFR (African American) 119.8; Est GFR (Non-African American) 103.3; Potassium 3.8 mmol/L (3.5-5.1)
[2019-06-24 07:43] LABS: Albumin Globulin Ratio 0.7 (0.9-2); Bilirubin,Total 0.5 mg/dl (0.2-1); Globulin 4.1 gm/dl (2.5-4.0); Total Protein 6.9 gm/dl (6.4-8.2)
--- NOTE | 2019-06-24 15:09 | History & Physical Report ---
Date of Service June 24, 2019 History of Present Illness Chief Complaint: abd pain Primary Care Provider: Tabitha Parker DO For EGD Allergies Allergy/AdvReac Type Severity Reaction Status Date / Time No Known Allergies Allergy Verified 06/23/19 18:04 Home Medications Home Medications Medication Instructions Recorded Confirmed Type dextroamphetamine-amphetamine 10 mg PO UD PRN #0 tab 05/04/17 06/23/19 History [Adderall] fluoxetine 20 mg PO HS #0 cap 05/04/17 06/23/19 History cetirizine 10 mg PO HS #0 tab 08/01/17 06/23/19 History multivitamin with minerals 1 tab PO QAM #0 08/01/17 06/23/19 History [Multiple Vitamin-Minerals] acetaminophen [Tylenol Extra 500 mg PO Q6H PRN 06/19/19 06/23/19 History Strength] ciprofloxacin HCl [Cipro] 500 mg PO BID #10 tab 06/19/19 06/23/19 Rx ibuprofen 200 mg PO Q6H PRN 06/21/19 06/23/19 History nystatin-triamcinolone 1 appln TOP BID PRN 06/21/19 06/23/19 History ondansetron 4 mg PO Q6 PRN #14 tab 06/21/19 06/23/19 Rx Past Med/Surg History Medical History (Updated 06/24/19 @ 03:21 by Lan Montalvo MD) Attention deficit disorder (ADD) Degenerative disc disease 3 in lower back Depression (Chronic) "MENOPAUSE INDUCED" Fatty liver GERD (gastroesophageal reflux disease) Kidney stones (Resolved) Osteoarthritis Rheumatoid arthritis UTI (urinary tract infection) (Acute) Surgical History History of colonoscopy History of cystoscopy WITH STENT INSERTION then removal History of tooth extraction Family History Other No significant family history Social History Preferred Language: Slovenian Communication Ability: Effective Visual Impairment: No Limitations Telephone Claims Representative Required: No Beliefs That Will Affect Care: None marital status: Current Living Situation: Spouse Current Living Situation Comment: DAUGHTER Other Information That Helps Us Care for You: No Feels Safe at Home: Yes Safety Concerns: Feels Safe At This Time Smoking Status: Never smoker Cigarettes Per Day: QUIT OVER 30 YEARS AGO ; Do You Dip or Chew Tobacco: No ; Second Hand Exposure: No ; Tobacco Cessation Education Requested by Patient: No Hx Alcohol Use: No Hx Substance Use: No Physical Exam Constitutional: + obese Respiratory: normal respiratory effort Cardiovascular: Rate/Rhythm: regular rate and regular rhythm Gastrointestinal (Abdomen): Percussion/Palpation: abdomen soft Results & Data Vital Signs (Past 12 Hours) Vital Signs Temp Pulse Resp BP Pulse Ox 06/24/19 07:46 37.0 C 87 16 117/70 93 Code Status & VTE Plan VTE Prophylaxis Plan VTE Prophylaxis will be ordered: Yes
[2019-06-24] MEDS ORDERED: SODIUM CHLORIDE 0.9% 1000ML 1,000 ML IV SCH (15:15)
[2019-06-24] MEDS ORDERED: ePHEDrine sulfate 50 MG/ML AMP IV PRN ×2 (15:19→15:26)
[2019-06-24] MEDS ORDERED: ATROPINE SULFATE 0.1 MG/ML 10ML SYR IV PRN ×2 (15:19→15:26)
--- NOTE | 2019-06-24 15:19 | Anesthesiology Consultation ---
Date of Service June 24, 2019 Assessment & Plan Chart Review Chart Review: Acceptable Risk for Surgery and Patient NOT seen in Pre Admission Testing Consults Requested none History Surgery Operation Date: 06/24/19 17:30 Proposed Procedures p Esophagogastroduodenoscopy Dr María Daniel Height/Weight Height: 5 ft 4 in Weight: 101 kg Allergies Allergy/AdvReac Type Severity Reaction Status Date / Time No Known Allergies Allergy Verified 06/23/19 18:04 Medications Home Medications Medication Instructions Recorded Confirmed Last Taken dextroamphetamine-amphetamine 10 mg PO UD PRN #0 tab 05/04/17 06/23/19 06/22/19 [Adderall] fluoxetine 20 mg PO HS #0 cap 05/04/17 06/23/19 06/22/19 cetirizine 10 mg PO HS #0 tab 08/01/17 06/23/19 06/22/19 multivitamin with minerals 1 tab PO QAM #0 08/01/17 06/23/19 06/22/19 [Multiple Vitamin-Minerals] acetaminophen [Tylenol Extra 500 mg PO Q6H PRN 06/19/19 06/23/19 06/22/19 Strength] ciprofloxacin HCl [Cipro] 500 mg PO BID #10 tab 06/19/19 06/23/19 06/22/19 ibuprofen 200 mg PO Q6H PRN 06/21/19 06/23/19 06/22/19 nystatin-triamcinolone 1 appln TOP BID PRN 06/21/19 06/23/19 06/22/19 ondansetron 4 mg PO Q6 PRN #14 tab 06/21/19 06/23/19 06/22/19 Active Medications Generic Name Dose Route Start Last Admin Trade Name Freq PRN Reason Stop Dose Admin Ciprofloxacin 500 mg 06/24/19 03:15 06/24/19 03:54 Cipro PO 06/29/19 03:14 Not Given BID JUDIE Fluoxetine HCl 20 mg 06/24/19 03:15 06/24/19 03:55 Prozac PO 07/24/19 03:14 Not Given HS JUDIE Potassium Chloride/Sodium Chloride 20 meq in 1,000 mls @ 100 mls/hr 06/24/19 00:10 06/24/19 15:12 Normal Saline W/20 Meq Kcl IV 07/24/19 00:09 0 mls/hr .Q10H JUDIE Infusion Ioversol 90 ml 06/23/19 19:48 06/23/19 19:48 Optiray 320 100ml IV 06/27/19 19:47 90 ml ONCE PRN Administration Interaction Checking Past Medical History Medical History Attention deficit disorder (ADD) Degenerative disc disease 3 in lower back Depression (Chronic) "MENOPAUSE INDUCED" Fatty liver GERD (gastroesophageal reflux disease) Kidney stones (Resolved) Osteoarthritis Rheumatoid arthritis UTI (urinary tract infection) (Acute) Past Family History Family History Other No significant family history Past Surgical History Surgical History History of colonoscopy History of cystoscopy WITH STENT INSERTION then removal History of tooth extraction Social History Smoking Status: Never smoker Smoking cigarettes per day: QUIT OVER 30 YEARS AGO Do You Dip or Chew Tobacco: No Hx Alcohol Use: No Alcohol type: wine alcohol intake frequency: holidays/special occasions only Hx Substance Use: No substance use type: does not use Physical Exam Vital Signs Last Vital Signs Temp 37.0 C 06/24/19 07:46 Pulse 87 06/24/19 07:46 Resp 16 06/24/19 07:46 BP 117/70 06/24/19 07:46 Pulse Ox 93 06/24/19 07:46 Testing Laboratory Results 06/24/19 06:46 06/24/19 06:46 PT 10.9 Seconds (9.0-12.0) 06/23/19 19:54 INR 1.1 (0.9-1.1) 06/23/19 19:54 Urine Color Dark Yellow 06/23/19 18:25 Urine Appearance Cloudy (Clear) A 06/23/19 18:25 Urine pH 6.0 (4.5-7.5) 06/23/19 18:25 Ur Specific [place] 1.026 (1.000-1.030) 06/23/19 18:25 Urine Protein Negative (Negative) 06/23/19 18:25 Urine Glucose (UA) Negative (Negative) 06/23/19 18:25 Urine Ketones Trace (Negative) H 06/23/19 18:25 Urine Nitrite Negative (Negative) 06/23/19 18:25 Ur Leukocyte Esterase Trace (Negative) H 06/23/19 18:25 Urine WBC (Auto) 1-5 /hpf (0-5) 06/23/19 18:25 Urine RBC (Auto) 10-30 /hpf (0-4) H 06/23/19 18:25 U Hyaline Cast (Auto) 0 /lpf (0-5) 06/23/19 18:25 U Epithel Cells (Auto) >30 /lpf (0-5) H 06/23/19 18:25 Urine Bacteria (Auto) Negative (Negative) 06/23/19 18:25
[2019-06-24] MEDS ORDERED: ONDANSETRON INJ 2 MG/ML 2 ML VIAL ONE (15:39)
[2019-06-24] MEDS ORDERED: PROPOFOL IV EMULSION 10 MG/ML 20 ML VIAL IV ONE (15:39)
[2019-06-24] MEDS ORDERED: LIDOCAINE HCL 2% 2 ML VIAL/AMP(20MG/ML) INFIL ONE (15:39)
[2019-06-24] MEDS ORDERED: GLYCOPYRROLATE 0.2 MG/ML VIAL ONE (15:39)
--- NOTE | 2019-06-24 15:45 | GI REPORT ---
Patient Name: Wen Garza Procedure Date: 06/24/2019 3:32 PM Date of : 1965 Admit Type: Inpatient Age: 53 Gender: Female Attending MD: Jose Alejandro Daniel MD Procedure: Upper GI endoscopy Providers: Jose Alejandro Daniel MD Referring MD: Referred Self Indications: Epigastric abdominal pain Medicines: Propofol total dose 200 mg IV, Lidocaine 80 mg IV Complications: No immediate complications. Estimated Blood Loss: Estimated blood loss: none. Procedure: Pre-Anesthesia Assessment: - Prior to the procedure, a History and Physical was performed, and patient medications, allergies and sensitivities were reviewed. The patient's tolerance of previous anesthesia was reviewed. - The risks and benefits of the procedure and the sedation options and risks were discussed with the patient. All questions were answered and informed consent was obtained. After obtaining informed consent, the endoscope was passed under direct vision. Throughout the procedure, the patient's blood pressure, pulse, and oxygen saturations were monitored continuously. The Scope was introduced through the mouth, and advanced to the second part of duodenum. The upper GI endoscopy was accomplished without difficulty. The patient tolerated the procedure fairly well. Findings: The Z-line was irregular and was found 34 cm from the incisors. LA Grade B (one or more mucosal breaks greater than 5 mm, not extending between the tops of two mucosal folds) esophagitis with no bleeding was found. Localized moderate inflammation characterized by erosions and erythema was found in the gastric antrum. Patchy mildly erythematous mucosa without active bleeding was found in the first portion of the duodenum. Impression: - Z-line irregular, 34 cm from the incisors. - LA Grade B reflux esophagitis. - Gastritis. - Erythematous duodenopathy. - No specimens collected. Recommendation: - Return patient to [facility] for [facility] care. Jose Alejandro Daniel M.D. Jose Alejandro Daniel MD 06/24/2019 3:44:34 PM This report has been signed electronically. Note Initiated On: 06/24/2019 3:32 PM Number of Addenda: 0 I attest to the content of the Intraoperative Record and orders documented therein, exceptions below {[id number]}
--- NOTE | 2019-06-24 16:04 | Consultation Report ---
DATE OF CONSULTATION: 06/24/2019 REASON FOR EVALUATION: Epigastric pain and abnormal liver tests. HISTORY OF PRESENT ILLNESS: The patient is a 53-year-old who presented to the Emergency Room for the third time in 3 days with symptoms of epigastric abdominal discomfort, fever, confusion and mild elevations in the aminotransferases and alkaline phosphatase, bilirubin was normal. The patient had multiple blood tests drawn previously that are still pending. Hepatitis B and C serologies were negative as well as mononucleosis. Imaging studies of her liver including an ultrasound, CAT scan and MRCP were essentially normal. EGD has been requested. A biliary scan has also been ordered. PAST MEDICAL HISTORY: Remarkable for attention deficit disorder, degenerative disk disease in her back, depression, esophageal reflux, kidney stones, osteoarthritis, rheumatoid arthritis. MEDICATIONS: Adderall, fluoxetine, cetirizine, multiple vitamin, Cipro, ibuprofen, nystatin, ondansetron. ALLERGIES: None. FAMILY HISTORY: Not significant. SOCIAL HISTORY: The patient lives with her spouse, has a daughter, feels safe at home, does not smoke, does not use any alcohol. REVIEW OF SYSTEMS: Patient reports persistent abdominal pain, otherwise negative for 12 systems. PHYSICAL EXAMINATION: GENERAL: The patient is overweight, in no acute distress. VITAL SIGNS: Blood pressure is 115/67, pulse 90 and regular. She is afebrile, temperature of 98.4 Fahrenheit. HEENT: Benign. LUNGS: Clear. HEART: Showed normal S1, S2. Regular rate and rhythm. ABDOMEN: Soft and nontender, nondistended. EGD was performed and showed grade B distal esophagitis, antral gastritis and some duodenitis in the duodenal bulb. There were no ulcerations or evidence of tumors. IMPRESSION: The patient has what appears to be acid injury involving the esophagus, stomach and duodenum. I would recommend continued acid suppression with proton pump inhibitor and follow up with a biliary scan for further evaluation of her symptoms.
--- NOTE | 2019-06-24 16:25 | Anesthesiology Progress Note ---
Date of Service June 24, 2019 Anesthesia Post Procedure Vital Signs Vital Signs: Temp Pulse Pulse Resp BP BP Pulse Ox 06/24/19 16:11 20 128/88 95 06/24/19 15:56 96 H 20 111/84 95 06/24/19 15:42 96 H 20 180/109 H 95 06/24/19 15:17 37.3 C 92 H 18 112/75 95 06/24/19 07:46 37.0 C 87 16 117/70 93 06/24/19 00:15 37.1 C 93 H 16 130/92 95 06/23/19 22:00 22 06/23/19 21:00 99 H 20 94 06/23/19 20:31 90 21 115/67 98 06/23/19 20:24 93 H 90 23 114/73 114/73 97 06/23/19 20:23 94 H 17 06/23/19 19:13 94 H 19 106/75 97 06/23/19 19:01 98 H 24 97 06/23/19 19:00 95 H 21 106/75 97 06/23/19 18:37 96 H 20 105/80 96 06/23/19 18:36 98 H 22 95 06/23/19 18:34 93 H 25 H 105/80 95 06/23/19 16:35 36.9 C 102 H 20 125/85 95 Pain Intensity Upper Abdomen: Pain Intensity: 4 Transfer of Care Handoff Completed per policy Notes Mental Status: alert / awake / arousable Patient Amnestic to Procedure: Yes Nausea / Vomiting: adequately controlled Pain: adequately controlled Airway Patency, RR, SpO2: stable & adequate BP & HR: stable & adequate Hydration State: stable & adequate Anesthetic Complications: no major complications apparent and Pt Satisfied with anesthetic care
[2019-06-24] MEDS ORDERED: PANTOprazole 40 MG TAB PO SCH (21:00)
--- NOTE | 2019-06-24 21:26 | Discharge Summary ---
Date of Service June 24, 2019 Admission HPI Per Admitting Provider The patient is a 53-year-old female with a past medical history including abnormal LFTs, UTI, rheumatoid arthritis, sepsis, pyelonephritis, obstructive uropathy and depression. She was referred to the ED due to worsening abdominal discomfort symptoms, fever and reported episode of confusion. Principal Diagnosis Esophagitis, gastritis Discharge Exam Constitutional WD/WN, vitals as above + overweight Eyes PERRL, conjunctivae normal, anicteric sclerae ENMT external ear and nose normal, oropharynx normal Neck trachea midline, no thyromegaly Respiratory normal respiratory effort, lungs clear to auscultation Cardiovascular RRR, no murmur, no edema Gastrointestinal (Abdomen) normal bowel sounds, soft, nontender, no hepatosplenomegaly Musculoskeletal no cyanosis or clubbing, extremities motor strength 5/5 Skin no rashes, warm and dry Neurologic patellar DTR's 2+ bilat, sensation intact and PERRL, EOMI, accommodation nl, no face palsy, no dysarthria Psychiatric A+Ox3, euthymic affect Lymphatic no cervical or axillary lymphadenopathy Discharge Data Allergies Allergy/AdvReac Type Severity Reaction Status Date / Time No Known Allergies Allergy Verified 06/24/19 15:24 Consultations 06/23/19 21:37 ED Decision to Admit Stat 06/24/19 00:10 Consult Case Management - Discharge Planning Routine Consult Gastroenterology Routine Procedures Performed Operation Date: 06/24/19 17:30 Actual Procedures p Esophagogastroduodenoscopy Rai Daniel Ordered Studies 06/23/19 17:50 CT abd pelvis IV con only Stat 06/23/19 18:01 US gallbladder Stat 06/24/19 00:01 MR MRCP Urgent Hospital Course (1) Upper abdominal pain: Patient's main complaint is that of upper abdominal pain with nausea. upon detailed discussed with the patient, the majority of her symptoms sound like GERD she gets burning, sharp epigastric and substernal pain EVERY DAY she says that she uses Tums EVERY DAY and they provide some relief when she takes them discussed that this is not good practice, she could be masking symptoms reviewed chart, minimal elevation in AST, ALT, alk phos Bilirubin normal MRCP showed a single stone in gall bladder, no evidence of choledocholithiasis, no cholecystitis kept patient NPO, asked for GI evaluation EGD showed esophagitis, gastritis, duodenopathy will treat with Protonix 40mg BID recommend follow up with PCP if she still has abdominal pain on Protonix could consider HIDA with EF as outpatient (2) Elevated LFTs: Likely at least in part a function of fatty liver. MRCP essentially normal, just a single gall stone repeat LFT in a week with PCP (3) UTI (urinary tract infection): Has been on Cipro 500 mg p.o. twice daily. complete the course that was prescribed by by ED physician (4) Cholelithiasis: Small gallstone noted in the gallbladder. Possible choledocholithiasis noted on CT, was not appreciated on MRI (5) Rheumatoid arthritis: Not reported to be on immunosuppressive agents. No recent flare activity. (6) Fatty liver: Noted on imaging of CT, ultrasound and MRI. (7) Depression: On fluoxetine 20 mg at bedtime Total Time Total Time Spent Total Time Spent (In Minutes): 38 minutes Total Time Includes: Examination of the Patient, Discharge Planning, Medication Reconciliation and Communication With Other Providers (Dr. Daniel) Discharge Plan Discharge Items Patient Disposition: Home - Self-Care Reason For Visit: ABNORMAL LFTS'S Discharge Diagnosis: Esophagitis and gastritis Minimal elevation in liver enzymes Condition on Discharge: Good Goals: follow up with Dr. Parker for follow up on your symptoms treat uncontrolled reflux with Protonix Activity: Resume your previous activity Non-emergency contact: Primary Care Provider Call non-emergency contact if: you have any medication questions, your symptoms worsen, your pain is not controlled and you have a fever Follow-up/Referrals: Tabitha Parker, [Primary Care Provider] - 06/28/19 12:50 pm (Please, follow up at Dr. Parker's office with her associate, Dr. Velasquez, on FridayJune 28 at 12:50 pm. *If you need to change this appointment, call the office at [phone].) Diet: Regular Addtl Attending Provider Instructions: Medications: - PROTONIX: 40mg twice a day, start this evening, this is to reduce acid production in stomach and control reflux take twice a day for a month then reduce to once a day therafter - IBUPROFEN: recommend that you stop taking this for at least a month as it can contribute to gastritis if you need to take it in the future you should ALWAYS take with food Upper abdominal pain likely due to untreated reflux start on Protonix 40mg twice a day for a month then reduce to once a day follow up with Dr. Parker in one week if you continue to have some abdominal pain or nausea Dr. Daniel recommends performing a HIDA scan your MRI of the abdomen showed a single gall stone in the gall bladder, no stones in the ducts, no evidence of cholecystitis (infection of gall bladder) simple measures to prevent reflux... avoid foods that relax the EG junction sphincter (caffeine, peppermint) try raising head of bed (some people will put bricks under legs of bed to slightly raise it) avoid eating late at night prior to bed (I know this is difficult with your work schedule) UTI: complete the course of Cipro as prescribed FOLLOW UP - scheduled for follow up on 06/28, keep this appointment Pending Studies at Discharge: No Visit Report Forms: Smoking Cessation Stand-Alone Forms: My Adis[facility], Smoking Cessation Medications and DC Order Prescriptions: New pantoprazole 40 mg Tablet,Delayed Release (Dr/Ec) 40 mg PO BID 30 Days Qty: 60 RF: 3 Continued dextroamphetamine-amphetamine [Adderall] 10 mg Tablet 10 mg PO UD PRN (Reason: NEEDED) Qty: 0 RF: 0 fluoxetine 20 mg Capsule 20 mg PO HS Qty: 0 RF: 0 cetirizine 10 mg Tablet 10 mg PO HS Qty: 0 RF: 0 multivitamin with minerals [Multiple Vitamin-Minerals] Tablet 1 tab PO QAM Qty: 0 RF: 0 acetaminophen [Tylenol Extra Strength] 500 mg Tablet 500 mg PO Q6H PRN (Reason: Pain) RF: 0 ciprofloxacin HCl [Cipro] 500 mg tablet 500 mg PO BID Qty: 10 RF: 0 nystatin-triamcinolone 100,000-0.1 unit/g-% cream 1 appln TOP BID PRN (Reason: Rash) RF: 0 ondansetron 4 mg tablet,disintegrating 4 mg PO Q6 PRN (Reason: nausea and vomiting) Qty: 14 RF: 0 Discontinued ibuprofen 200 mg Tablet 200 mg PO Q6H PRN (Reason: Pain) RF: 0 Discharge Orders: Discharge Order (Routine); Ordered 06/24/19 Ordered By: Kareem Castillo/Other Patient Handouts: Abd Pain Admission Data Admit Date/Time: 06/23/19 22:50 Attending Provider: Kareem Lu Admit Provider: Lan Montalvo Primary Care Provider: Tabitha Parker Other Providers: Lan Montalvo ; Jose Alejandro Daniel Other Interventions: Discharge Summary Assessment (RN) Last Done: 06/24/19 17:14 DC Date/Time DO NOT enter until pt leaves facility: 06/24/19 18:33 Coding Level of Care Code D/C Day Management >30 mins Diagnoses Upper abdominal pain R10.10 Elevated LFTs R94.5 UTI (urinary tract infection) N39.0 Hematuria presence: without hematuria Urinary tract infection type: site unspecified Cholelithiasis K80.20 Biliary obstruction: without biliary obstruction Cholecystitis presence: without cholecystitis Cholelithiasis location: gallbladder Rheumatoid arthritis M06.9 Fatty liver K76.0 Depression F32.9
[2019-06-29 11:39] LABS: Anti Nuclear Antibody Screen NEGATIVE (NEGATIVE); CMV IgM Antibody <30.00 AU/mL; Hepatitis A Antibody IgM NON-REACTIVE (NON-REACTIVE); Hepatitis B Core Antibody IgM NON-REACTIVE (NON-REACTIVE); Smooth Muscle Antibody NEGATIVE (NEGATIVE)
== END 2019-06-24 18:33 | disposition home or self-care (01) ==
LOC: ED 16:13 → 3N 16:13 → SUATTDRO 22:50 → 3N 23:29